=== PATIENT | female | born 1950 | race African-American/Black ===

== ENCOUNTER 2024-09-04 14:45 | Outpatient (CLI) | payer MEDICARE, SELFPAY ==
--- OUTSIDE RECORDS SUMMARY | 2024-09-04 14:56 | XMS_ITS ---
Author Organization Unknown TREATMENT PLAN Planned [facility] Start Date Provider Encounter for Check-up [id number] JADYN Augustin
[2024-09-04 17:12] LABS: Alanine Aminotransferase 31 U/L (12-78); Albumin Level 4.0 g/dl (3.5-5.0); Albumin/Globulin Ratio 1.3 (1.1-1.8); Alkaline Phosphatase 75 U/L (38-126); Anion Gap 18.0 mEq/L (5-15); Aspartate Amino Transferase 34 U/L (14-36); Bilirubin,Total 0.4 mg/dl (0.2-1.3); Blood Urea Nitrogen 7 mg/dl (7-17); Calcium 9.2 mg/dl (8.4-10.2); Carbon Dioxide 25 mmol/L (22.0-30.0); Chloride 102 mmol/L (98-107); Creatinine,Serum 0.80 mg/dl (0.52-1.04); Estimated Glomerular Filt Rate 70 ml/min (>60); GFR (African American) 85 ML/MIN (>60); Globulin 3.0 g/dL (1.3-3.2); Glucose 179 mg/dl (74-100); Potassium 4.0 mmoL/L (3.5-5.1); Sodium 141 mmol/L (136-145); Total Protein,Serum 7.0 g/dl (6.3-8.2)
== END 2024-09-04 23:59 | disposition home or self-care (01) ==
LOC: LAB 14:53
PROVIDERS: PCP Family Medicine; Visit Provider Family Medicine
DX: I10 Essential (primary) hypertension (principal); Z13.1 Encounter for screening for diabetes mellitus
CPT/HCPCS: 36415; 80053

== ENCOUNTER 2024-09-18 08:36 | Outpatient (CLI) | payer MEDICARE, SELFPAY ==
--- OUTSIDE RECORDS SUMMARY | 2024-09-18 08:39 | XMS_ITS | Data Portability ---
Author Organization [facility], [facility] Address [address] [address] Care Team Providers Care Property Management Coordinator Name Role Phone SATISH NAVARRO Primary Care Provider [phone] SATISH NAVARRO Referring Provider [phone] Assessment Encounter Date Assessment Date Assessment LastModified by Organization Details LastModified Time 09/25/2020 09/25/2020 HISTORY OF PRESENTING ILLNESS Ms. Bateman is a 69-year-old female with low back and leg pain, here for new patient evaluation She underwent a posterior fusion at L4/5 and 2019, now presents with left hip pain. Of note, the patient is prescribed dual antiplatelet therapy for recurrent strokes. Her pain begins in the low back and radiates into the left groin. Worse with walking. Prevents her from completing her ADLs. Denies any radicular symptoms at this time. Does occasionally have right groin pain as well but it is not bothering her today. Onset/Course: Began in 2019 Location: Low back and left groin Quality: Achy, dull, constant Worse: Walking Better: Sitting Associated symptoms: Denies Current Pain Medications: Gabapentin 200 mg 3 times daily Prior Pain Medications: Lyrica Hydrocodone briefly Non-interventiona l Tx: Has completed > 6 weeks of physical therapy and/or directed home exercise program Interventional Tx: L4/5 posterior fusion 2019 Imaging/Studies: CT lumbar spine 10/09/2019 Previous posterior interbody fusion at L4/5 T12/L1 minimal spurring no stenosis L1/2 mild bulge, no spinal or foraminal stenosis L2/3 mild protrusion, mild CCS, mild bilateral NFS, facet arthropathy L3/4 broad protrusion with mild endplate spurring, moderate facet arthropathy, mild CCS with mild to moderate bilateral NFS L4/5 fusion level, residual spurring, soft tissue material posterior to the disc, moderate bilateral NFS L5/S1 diffuse disc space narrowing, moderate facet arthropathy, osteophyte complex moderate left NFS, left lateral recess stenosis, moderate right neuroforaminal stenosis MRI L-spine 08/2019 T12/L1 WNL L1/2 no CCS, no NFS L2/3 facet arthropathy, mild CCS, mild bilateral NFS L3/4 facet arthropathy, mild CCS, mild bilateral NFS L4/5 fusion level, scar tissue, bilateral facet arthropathy, moderate right NFS and moderate left NFS, moderate CCS L5/S1 fusion level, moderate to severe left NFS, no CCS IMPRESSION/PLAN Ms. Bateman presents with left groin and low back pain, here for new patient evaluation Her pain today is primarily in the left groin, worse with provocative maneuvers for the left hip. We will proceed with a left hip intra-articular steroid injection for her. She also has axial low back pain that worsens with facet loading and has positive paraspinal tenderness. 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 Once we rule out hip pathology for her pain via her injection, she would be a candidate for lumbar MBB's at L L3-L5 bilaterally. Today, she has some hydrocodone left from an earlier prescription, takes it very rarely. We agreed to initiate therapeutic injections in hopes of addressing her pain, if this does not resolve her pain in the next few weeks, we will begin tramadol for her. I would start her at 50 mg twice daily. She understood this plan and is in agreement. We will also obtain x-rays of both hips today. ORT score is 0, making the patient a low risk candidate for opioid therapy should it be indicated. MICAH reviewed today and appropriate. Tyler reviewed via [facility] data retrieval tool and appropriate. The patient has failed conservative measures, including > 6 weeks of physical therapy, a monitored home exercise program, and/or NSAIDs. Not available 09/25/2020 11:50:25 10/30/2020 10/30/2020 Interval Hx: Ms. Bateman follows up after her left hip injection. She is deriving excellent pain relief from her left hip injection, denying any recurring groin pain on that side. She is able to walk easier and now getting around much better. She does have some residual back pain that she would like us to address today. This is bilateral and does not radiate. Doing very well overall and pleased with her care thus far. HISTORY OF PRESENTING ILLNESS Ms. Bateman is a 69-year-old female with low back and leg pain She underwent a posterior fusion at L4/5 and 2019, now presents with left hip pain. Of note, the patient is prescribed dual antiplatelet therapy for recurrent strokes. Her pain begins in the low back and radiates into the left groin. Worse with walking. Prevents her from completing her ADLs. Denies any radicular symptoms at this time. Does occasionally have right groin pain as well but it is not bothering her today. Onset/Course: Began in 2019 Location: Low back and left groin Quality: Achy, dull, constant Worse: Walking Better: Sitting Associated symptoms: Denies Current Pain Medications: Gabapentin 200 mg 3 times daily Prior Pain Medications: Lyrica Hydrocodone briefly Non-interventiona l Tx: Has completed > 6 weeks of physical therapy and/or directed home exercise program Interventional Tx: L4/5 posterior fusion 2019 Left hip injection 09/2020, excellent pain relief, ongoing Imaging/Studies: CT lumbar spine 10/09/2019 Previous posterior interbody fusion at L4/5 T12/L1 minimal spurring no stenosis L1/2 mild bulge, no spinal or foraminal stenosis L2/3 mild protrusion, mild CCS, mild bilateral NFS, facet arthropathy L3/4 broad protrusion with mild endplate spurring, moderate facet arthropathy, mild CCS with mild to moderate bilateral NFS L4/5 fusion level, residual spurring, soft tissue material posterior to the disc, moderate bilateral NFS L5/S1 diffuse disc space narrowing, moderate facet arthropathy, osteophyte complex moderate left NFS, left lateral recess stenosis, moderate right neuroforaminal stenosis MRI L-spine 08/2019 T12/L1 WNL L1/2 no CCS, no NFS L2/3 facet arthropathy, mild CCS, mild bilateral NFS L3/4 facet arthropathy, mild CCS, mild bilateral NFS L4/5 fusion level, scar tissue, bilateral facet arthropathy, moderate right NFS and moderate left NFS, moderate CCS L5/S1 fusion level, moderate to severe left NFS, no CCS IMPRESSION/PLAN Ms. Bateman presents with left groin and low back pain, here for new patient evaluation Her left hip injection relieved her groin pain and left-sided hip pain. 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 She is in agreement with this plan and wishes to move forward. ORT score is 0, making the patient a low risk candidate for opioid therapy should it be indicated. UDS reviewed today and appropriate. Tyler reviewed via [facility] data retrieval tool and appropriate. The patient has failed conservative measures, including > 6 weeks of physical therapy, a monitored home exercise program, and/or NSAIDs. Not available 10/30/2020 11:57:45 Plan of Treatment Reminders Order Date Submit Date Provider Last Modified By Organization Details Last Modified Time Details Appointments None recorded. Lab unlisted lab 2020 021 [email or web address] [facility], [facility], [address] [place] [address], [id number], 15:45:23 drug screen, urine 2020 021 [email or web address] [place], [address] [place], [place] [address] [address], [place], [address], 11:50:57 unlisted lab - confirm new patient 2020 021 [email or web address] [facility], [facility], [address] [place] [address], [id number], 15:14:45 Referral None recorded. Procedures medial branch block, lumbar (PROC) - #2 LMBB Bilateral L3-L5 Lulu Martín in 2 weeks 2020 021 [email or web address] Not available 13:52:46 intra-joon cular injection, hip (PROC) 2020 021 [email or web address] Not available 12:12:40 Surgeries medial branch block, lumbar (SURG) 2020 021 [email or web address] Not available 10:31:09 Imaging XR, hip, bilateral 2020 021 [email or web address] Not available 14:32:53 Medication Orders None recorded. Patient TargetsNo targets recorded. Patient InstructionsNo instructions recorded. Reason for Referral None Reported. Results Created Date Observation Date Name Description Value Unit Range Abnormal Flag Note LastModifiedBy Organization Detail LastModifiedTime 09/26/1909/25/2020 drug scree n, urine THC: negati ve Not Available [place] [address], [place], [address], 09/25/2020 11:06:37 09/26/19 21 09/25/2020 drug scree n, urine Buprenorphin e: negati ve Not Available [place] [address], [place], [address], 09/25/2020 11:06:37 09/26/19 21 09/25/2020 drug scree n, urine TCA: negati ve Not Available [place] [address], [place], [address], 09/25/2020 11:06:37 09/26/19 21 09/25/2020 drug scree n, urine Barbiturates : positi ve Not Available [place] [address], [place], [address], 09/25/2020 11:06:37 09/26/19 21 09/25/2020 drug scree n, urine Benzodiazepi cecil: negati ve Not Available [place] [address], [place], [address], 09/25/2020 11:06:37 09/26/19 21 09/25/2020 drug scree n, urine Methadone: negati ve Not Available [place] [address], [place], [address], 09/25/2020 11:06:37 09/26/19 21 09/25/2020 drug scree n, urine Amphetamines : negati ve Not Available [place] [address], [place], [address], 09/25/2020 11:06:37 09/26/19 21 09/25/2020 drug scree n, urine Morphine/Opi ates: negati ve Not Available [place] [address], [place], [address], 09/25/2020 11:06:37 09/26/19 21 09/25/2020 drug scree n, urine Oxycodone: negati ve Not Available [address], [place], [address], 09/25/2020 11:06:37 09/26/19 21 09/25/2020 drug scree n, urine MDMA: negati ve Not Available [address], [place], [address], 09/25/2020 11:06:37 09/26/19 21 09/25/2020 drug scree n, urine Cocaine: negati ve Not Available [address], [place], [address], 09/25/2020 11:06:37 09/26/19 21 09/25/2020 drug scree n, urine Methamphetam ine: negati ve Not Available [address], [place], [address], 09/25/2020 11:06:37 10/13/19 21 10/07/2020 XR, hip, bilat eral No observ ation record ed. Not Available 2020 14:32:53 Result Notes None recorded. Problems Name Problem SNOMED Code Status Onset Date Resolution Date Notes Provider Name and Address Organization Details Recorded Time Obesity 668701459 Active 2015 Irish Yu null, [place] - [facility] 1 11:30:02 Hypertensive disorder 25170792 Active 2015 Irish Yu null, [place] - [facility] 11:30:02 Seizure 38839616 Active 2015 Irish Yu null, [place] - [facility] 1 11:30:02 Type 2 diabetes mellitus without complication 525054934 Active 2015 Irish Yu null, [place] - [facility] 1 11:30:02 Presbyopia 34839567 Active 2015 Irishbrandon De SantiagoYu null, [place] - [facility] 11:30:02 Exotropia 169216650 Active 2015 Irish Yu null, [place] - [facility] 1 11:30:02 Hyperlipidemia 68904626 Active 2015 Irishbrandon Beverlyon null, [place] - [facility] 1 11:30:02 Cataract 388243715 Active 2016 Irish Yu null, [place] - [facility] 1 11:30:02 Burning sensation 03759916 Active 2019 Janettegeorgette Loveley null, [place] - [facility] 1 11:07:51 Low back pain 880892987 Active 2020 Irish Beverlyon null, [place] - [facility] 1 11:30:02 Lumbar spondylosis 971193453 Active 2020 Irish Beverlyon null, [place] - [facility] 11:30:02 Osteoarthritis of hip 230453627 Active 2020 Irish Beverlyon null, [place] - [facility] 11:30:02 Long-term drug therapy Active 2020 Irish De Santiagoguson null, [place] - [facility] 1 11:30:02 Problem Notes None recorded. Procedures Surgical History Date Name Laterality Status Provider Name and Address Organization Details Recorded Time 11/28/19 21 Diagnostic Lumbar MBB (2 Level Bilateral) completed DAVDI WAYNE MD [address] [place] [address], [address], [facility] 11/27/2020 15:24:33 10/01/19 21 Hip Joint Injection Fluoro completed DAVID WAYNE MD [address] [place] [address], [address], [facility] 09/30/2020 12:14:47 lumbar spinal fusion completed [facility] 09/25/2020 11:10:34 ACDF completed [facility] 09/25/2020 11:10:59 Hysterectomy completed [facility] 09/25/2020 11:11:28 Imaging Results None recorded. Procedure Notes None recorded. Medical Equipment None Reported. Allergies No known drug allergies Medications Name Sig Start Date Stop Date Status Note LastModified by Organization Details LastModified Time cyclobenzap rine 10 mg tablet Take 1 tablet 3 times a day by oral route as needed. 10/30 completed Not Available Not Available Not Available furosemide 40 mg tablet TAKE ONE TABLET BY MOUTH DAILY DIRECTED active Not Available Not Available No t Available furosemide 10 mg/mL injection solution Take 2 mL by injection route. 09/17 completed Not Available Not Available Not Available atorvastati n 40 mg tablet Take 1 tablet every day by oral route for 90 days. active Not Available Not Available No t Available Percocet 7.5 mg-325 mg tablet Take 1 tablet every 6 hours by oral route as needed. 07/25 completed Not Available Not Available Not Available azelastine 0.05 % eye drops 1 drop Two times a day 08/20 completed Not Available Not Available Not Available doxycycline hyclate 100 mg capsule Take 1 capsule twice a day by oral route for 30 days. 01/16 completed Not Available Not Available Not Available pravastatin 40 mg tablet TAKE ONE TABLET BY MOUTH EVERY NIGHT AT BEDTIME 02/25 completed Not Available Not Available Not Available hydrocodone 5 mg-acetamin ophen 325 mg tablet 10/30 completed Not Available Not Available Not Available Lipitor 80 mg tablet Take 1 tablet every day by oral route for 90 days. 2019 active Not Available Not Available Not Avai lable meloxicam 15 mg tablet Take 1 tablet every day by oral route as needed. 04/05 completed Not Available Not Available Not Available atenolol 25 mg tablet Take 1 tablet every day by oral route for 30 days. active Not Available Not Available No t Available phenytoin sodium extended 200 mg capsule TAKE TWO CAPSULES BY MOUTH DAILY active Not Available Not Available No t Available cyanocobala min (vit B-12) 1,000 mcg tablet 1 tab po q day 11/15 completed Not Available Not Available Not Available phenytoin sodium extended 100 mg capsule 1 tab poBedtime 05/15 completed Not Available Not Available Not Available clopidogrel 75 mg tablet Take 1 tablet every day by oral route for 90 days. active Not Available Not Available No t Available aspirin 81 mg tablet,jonathan yed release Daily 12/01 completed Not Available Not Available Not Available hydrocortis one 2.5 % topical cream with perineal applicator 09/25 completed Not Available Not Available Not Available triamcinolo ne acetonide 0.1 % dental paste apply 1/4 inch qhs 2019 active Not Available Not Available Not Avai lable aspirin 325 mg tablet,jonathan yed release 1 tab po q day 03/11 completed Not Available Not Available Not Available OneTouch Ultra Test strips Daily 03/11 completed Not Available Not Available Not Available metformin 1,000 mg tablet Take 1 tablet twice a day by oral route for 90 days. 07/04 completed Not Available Not Available Not Available prednisone 50 mg tablet active Not Available Not Available Not Available gabapentin 100 mg capsule Take 1 capsule 3 times a day by oral route as directed for 30 days. active Not Available Not Available No t Available methylpredn isolone 4 mg tablets in a dose pack Take as directed. 09/25 completed Not Available Not Available Not Available lisinopril 40 mg tablet TAKE ONE TABLET BY MOUTH DAILY active Not Available Not Available No t Available Klor-Con M20 mEq tablet,exte nded release TAKE ONE TABLET BY MOUTH TWICE A DAY active Not Available Not Available No t Available metoprolol tartrate 25 mg tablet TAKE ONE TABLET BY MOUTH TWICE A DAY 03/11 completed Not Available Not Available Not Available pregabalin 75 mg capsule 09/25 completed Not Available Not Available Not Available Januvia 50 mg tablet Take 1 tablet every day by oral route for 90 days. 11/15 completed Not Available Not Available Not Available Januvia 100 mg tablet Take 1 tablet every day by oral route for 90 days. 07/29 completed Not Available Not Available Not Available Janumet 50 mg-500 mg tablet Take 1 tablet twice a day by oral route for 30 days. active Not Available Not Available No t Available Janumet 50 mg-1,000 mg tablet TAKE ONE TABLET BY MOUTH TWICE A DAY active Not Available Not Available No t Available Aleve-D Sinus and Headache Two times a day 03/11 completed Not Available Not Available Not Available Suprep Bowel Prep Kit 17.5 gram-3.13 gram-1.6 gram oral solution DIRECTED 09/25 completed Not Available Not Available Not Available Polycin 500 unit-10,000 unit/gram eye ointment Apply 1 applicati on twice a day by ophthalmi c route. 01/16 completed Not Available Not Available Not Available Preparation H(phenyleph ,cocoa buttr) 0.25 %-88.44 % rectal suppository Insert 1 supposito ry 3 times a day by rectal route as needed for 7 days. 04/10 completed Not Available Not Available Not Available Vitals Date Recorded Body height Body mass index (BMI) Body weight Provider Name and Address Organization Details Last Updated DateTime 09/25/2020 160.02 cm 46.8 kg/m2 008989.39 g Janette Yanez [facility] 09/25/2020 11:06:56 Date Recorded Body height Body mass index (BMI) Body weight Pain severity - 0-10 verbal numeric rating [Score] - Reported Provider Name and Address Organization Details Last Updated DateTime 10/30/2020 160.02 cm 46.8 kg/m2 269697.39 g 4 Irish Yu [facility] 10/30/2020 11:29:50 Social History Question Answer Notes LastModified by Organizat ion Details LastModified Time Tobacco Smoking Status Former Smoker Janette melgar [facility] 09/25/2020 11:09:58 Are You Blind Or Do You Have Difficulty Seeing? No Information n ot available 09/25/2020 What Is Your Level Of Caffeine Consumption? Moderate [email or web address] Information not available 09/25/2020 In The 14 Days Before Symptom Onset, Have You Had Close Contact With A Laboratory-confirm ed COVID-19 While That Case Was Ill? No [email or web address] Information n ot available 09/25/2020 In The 14 Days Before Symptom Onset, Have You Had Close Contact With A Person Who Is Under Investigation For COVID-19 While That Person Was Ill? No [email or web address] Information not available 09/25/2020 Have You Been To An Area Known To Be High Risk For COVID-19? No [email or web address] Information not available 09/25/2020 Are You Deaf Or Do You Have Serious Difficulty Hearing? No [email or web address] Information not available 09/25/2020 What Type Of Diet Are You Following? REGULAR Information n ot available 09/25/2020 Have You Processed Blood Or Body Fluids From An Ebola Virus Disease Patient Without Appropriate PPE? No [email or web address] Information not available 09/25/2020 Do You Reside In Or Have You Traveled To An Area Where Ebola Virus Transmission Is Active? No Information not available 09/25/2020 Which Of Your Hands Is Dominant? Left [email or web address] Information n ot available 10/30/2020 What Is Your Relationship Status? [email or web address] Information not available 09/25/2020 Do You Have Difficulty Walking Or Climbing Stairs? Yes [email or web address] Information not available 09/25/2020 Sex: Unknown Functional Status Question Answer Note LastModified by Organizat ion Details LastModified Time Do you use any illicit or recreational drugs? No [email or web address] Information not available 09/25/2020 What is your level of alcohol consumption? Occasional [email or web address] Information not available 09/25/2020 Are you currently employed? No [email or web address] Information not available 09/25/2020 Are you able to walk? YESASSIST [email or web address] Information not available 09/25/2020 Do you have difficulty doing errands alone? Yes [email or web address] Information not available 09/25/2020 Do you have difficulty dressing or bathing? Yes Information not available 09/25/2020 What is your exercise level? Occasional [email or web address] Information not available 09/25/2020 Mental Status Question Answer Note LastModified by Organization D etails LastModified Time Do you have difficulty concentrating, remembering or making decisions? No [email or web address] Information no t available 09/25/2020 Family History Nothing Reported. Medical History Condition Response Bipolar Disease N Coronary Artery Disease N Seizure Disorder Y Gout N Atrial Fibrillation N Thyroid Disease N Hernia N Head Trauma/Injury N COPD N Depression N Anxiety Disorder N Acid Reflux (GERD) N Cancer N Stroke Y Skin Disorder N High Cholesterol Y Liver Disease N Rheumatoid Arthritis N Headaches N Fibromyalgia N Kidney Disease N Autoimmune Disease N Osteoarthritis N Neurosurgery N DVT N Peptic Ulcer Disease N Anemia N Heart Attack (DE) N Diabetes Y Cardiomyopathy N Bleeding Disorder N CHF N AIDS/HIV N Inflammatory Bowel Disease N Dementia N Asthma N Substance Abuse N Sleep Apnea N Hepatitis N Heart Disease N Pulmonary Embolism N Chronic Low Back Pain Y Hypertension Y Osteoporosis N Gynecological HistoryNo gynecological history recorded. Obstetrics History GPAL:G 0 P 0 0 0 0 Immunizations Vaccine Type Date Status Note Provider Nam e and Address Organization Details Recorded Time pneumococcal, unspecified formulation 12/08/2011 [facility] 09/25/2020 11:07:51 Past Encounters Encounter ID Performer Location Encounter Start Date Encounter Closed Date Diagnosis/Indication Diagnosis SNOMED-CT Code Diagnosis ICD10 Code Diagnosis Note [id number] DAVID WAYNE MD [place] [address] [address] [place] [address] 09/25/2020 10:14:28 09/25/2020 11:43:35 Lumbar spondylosis 140144846 M47.896 Long-term drug therapy 065026962 Z79.899 The urine sample is being sent for quantitati ve LCMS analysis of illicit drugs (Cocaine, Methamphet amine, Heroin, Fentanyl, THC, Synthetic Cannabinoi ds, Kratom, MDMA, PCP, and Synthetic Stimulants , Opiates (Codeine, Hydrocodon e, Hydromorph one, and Morphine), Oxycodone, Oxymorphon e, Methadone, Synthetic Opioids (Tramadol, Tapentadol , and Buprenorph ine), Benzodiaze pines (Alprazola m, Clonazepam , Lorazepam, Diazepam, Nordazepam , Oxazepam, and Temazepam) , Gabapentin , Pregabalin , Muscle Relaxants (Carisopro dol, Cyclobenza jennifer, and Meprobamat e), Ketamine, Nalaxone, and Amphetamin e, as this patient is being prescribed opioid medication s for the first time at this practice. The purpose of this analysis is to confirm the patients stated medication usage and to establish baseline medication and metabolite quantities , and to evaluate for use of medication s that are not prescribed or reported by the patient. Osteoarthritis of hip 23 [id number] M16.0 [id number] DAVID WAYNE MD [place] [address] [phone] 09/30/2020 08:23:55 09/30/2020 09:24:04 Osteoarthritis of hip [id number] M16.0 [id number] DAVID WAYNE MD [place] [address] [address] 10/30/2020 10:39:57 10/30/2020 11:59:55 Osteoarthritis of hip [id number] M16.0 Lumbar spondylosis [id number] M47.896 Long-term drug therapy [id number] Z79.899 The urine sample is being sent for quantitati ve LCMS analysis of illicit drugs (Cocaine, Methamphet amine, Heroin, Fentanyl, THC, Synthetic Cannabinoi ds, Kratom, MDMA, PCP, and Synthetic Stimulants , Opiates (Codeine, Hydrocodon e, Hydromorph one, and Morphine), Oxycodone, Oxymorphon e, Methadone, Synthetic Opioids (Tramadol, Tapentadol , and Buprenorph ine), Benzodiaze pines (Alprazola m, Clonazepam , Lorazepam, Diazepam, Nordazepam , Oxazepam, and Temazepam) , Gabapentin , Pregabalin , Muscle Relaxants (Carisopro dol, Cyclobenza jennifer, and Meprobamat e), Ketamine, Nalaxone, and Amphetamin e, as this patient is being prescribed opioid medication s for the first time at this practice. The purpose of this analysis is to confirm the patients stated medication usage and to establish baseline medication and metabolite quantities , and to evaluate for use of medication s that are not prescribed or reported by the patient. [id number] DAVID WAYNE MD [place] [address] [place] [address] 11/27/2020 12:59:07 11/27/2020 13:38:17 Lumbar spondylosis [id number] M47.896 Health Concerns Section Related Observation LastModified by Organization Detai ls LastModified Time None Recorded Concern Status LastModified by Organization Details LastModified Time None Recorded Advance Directives Directive None Recorded Payers Insurance Date Sequence Insurance Name Policy Number Policy Edmond Covered Member ID Edmond Member ID Guarantor Name 12/01/2020 1 [place] Gemma Bateman [id number] Gemma Bateman Notes Date Note Type Note Provider Name and Address Organization Details Recorded Time 09/25/2020 text/html Low back painRep orted by PatientHPIFor associated symptoms, patient reportsnumbness (bilateral feet),tingling (bilateral feet), andswelling (bilateral lower extremities)but reportsno weakness,no popping/clicking,no bowel incontinence,no urinary retention,no urinary incontinence, andno perineal paresthesia/anesthesia . 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 For location, patient reportsbuttock: __ (right greater than left.)(pain radiates into the groin area bilaterally.). For duration, patient reportsvaries throughout the day. For context, patient reportsstarted without cause. For quality, patient reportsachingandthrobb ing. For pain intensity, patient reportsmoderate,jes t pain level: 5/10,average pain level: 5/10, andworst pain level: 10/10. For alleviating factors, patient reportsrestandopioids (hydrocodone). For aggravating factors, patient reportsstandingandwalk ing(patient states as she stands or walks she starts to lean forward.). For prior imaging, patient reportsmri (10/09/2019 mri lsp2/ mri lsp). For lumbar surgery, patient reportslumbar spinal fusion: (05/14/2019 fusion l4/[address] allison). For physical therapy, patient reportsresponse to therapy: temporary pain/symptoms improvement(04/2019 patient states this was beneficial.). For medications history, patient reportsnsaids:,muscle relaxants: (flexeril-not effective),neuropathic s: (gabapentin- not effective for low back pain.lyrica-side effects), andopioid pain medications: (hydrocodone-effective ). For prior pain management, patient reportsyes: (the pain treatment center. patient states this was possibly 20 years ago.). For onset, (pain increased since 2014). For interventional treatment history, (to date patient has not received injective therapy.). DAVID WAYNE MD [address] [place] [address], [phone], [facility] 09/25/2020 11:51:03 10/30/2020 text/html Follow-up (meds & injections)Reported by Patient Low back painReported by PatientHPIFor associated symptoms, patient reportsnumbness (bilateral feet),tingling (bilateral feet), andswelling (bilateral lower extremities)but reportsno weakness,no popping/clicking,no bowel incontinence,no urinary retention,no urinary incontinence, andno perineal paresthesia/anesthesia . 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 For location, patient reportsbuttock: __ (right greater than left.)(pain radiates into the groin area bilaterally.). For duration, patient reportsvaries throughout the day. For context, patient reportsstarted without cause. For quality, patient reportsachingandthrobb ing. For pain intensity, patient reportsmoderate,curren t pain level: 4/10,average pain level: 5/10, andworst pain level: 10/10. For alleviating factors, patient reportsrest. For aggravating factors, patient reportsstandingandwalk ing(patient states as she stands or walks she starts to lean forward.). For prior imaging, patient reportsmri (10/09/2019 mri lsp2/ mri lsp). For lumbar surgery, patient reportslumbar spinal fusion: (05/14/2019 fusion l4/[address] allison). For physical therapy, patient reportsresponse to therapy: temporary pain/symptoms improvement(04/2019 patient states this was beneficial.). For medications history, patient reportsneuropathics: (gabapentin- not effective for low back pain.lyrica-side effects). For prior pain management, patient reportsyes: (the pain treatment center. patient states this was possibly 20 years ago.). For onset, (pain increased since 2015). For interventional treatment history, (to date patient has not received injection therapy.). Patient denies any ER, specialty, or PCP visits recently. No updated imaging. Patient states that she is no longer taking Hydrocodone or Cyclobenzaprine. Patient has some L left pain but is mainly concerned about her low back. Current pain score is 4/10. DAVID WAYNE MD [address] [place] [address], [phone], [facility] 10/30/2020 11:58:54 OBGyn Episode No OBEpisode recorded.
--- OUTSIDE RECORDS SUMMARY | 2024-09-18 08:39 | XMS_ITS | Data Portability ---
Author Organization [facility] KIYA Jo ATLANTA CLOSED Address [address] [place] [address] Care Team Providers Care Relocation Coordinator Name Role Phone DEUCE MACHADO Traffic Chief MAR OSORIO Neurologist [phone] KATHARINE MURRAY Primary Care Provider Assessment No assessment recorded. Plan of Treatment Reminders Order Date Submit Date Provider Last Modified By Organization Details Last Modified Time Details Appointments None recorded. Lab lipid panel, serum 2024 025 [facility], [address] [place] [address], [id number], 5 20:50:18 CMP, serum or plasma 2024 025 [facility], [address] [place] [address], [address], 5 20:50:17 CBC w/ auto diff 2024 025 [facility], [address] [place] [address], [address], 5 20:16:28 hemoglobin A1C, fingerstick 2024 025 [email or web address] [facility], [address] [place] [address], [address], 5 16:42:43 drug screen, urine 2023 024 [facility], [address] [place] [address], [address], 4 15:37:53 BMP, serum or plasma 2023 024 [facility], [address] [place] [address], [address], 4 20:05:27 phenytoin, total, serum 2023 024 [facility], [address] [place] [address], [address], 4 19:59:18 hemoglobin A1C, fingerstick 2023 024 [email or web address] [facility], [address] [place] [address], [address], 4 14:34:22 microalbumi n/creatinin e, mass ratio, urine 2023 024 [facility], [address] [place] [address], [address], 4 20:13:26 hemoglobin A1C, fingerstick 2023 024 [facility], [address] [place] [address], [address], 4 15:39:34 hemoglobin A1C, fingerstick 2022 023 [facility], [address] [place] [address], [address], 3 16:29:14 glucose, fingerstick , blood 2022 023 [facility], [address] [place] [address] [place], [address], 3 16:29:15 lipid panel, serum 2022 023 [facility], [address] [place] [address], [address], 4 17:36:32 iron + total iron-bindin g capacity (TIBC), serum 2022 023 [facility], [address] [place] [address], [address], 4 17:36:29 ferritin, serum or plasma 2022 023 [facility], [address] [place] [address], [address], 4 17:36:27 CBC w/ auto diff 2022 023 [facility], [address] [place] [address], [address], 4 15:07:09 BMP, serum or plasma 2022 023 [facility], [address] [place] [address], [address], 4 17:36:30 drug screen, urine 2022 023 [facility], [address] [place], [address], 3 22:16:16 microalbumi n/creatinin e, mass ratio, urine 2022 023 [facility], [address] [place] [address], [address], 3 22:16:16 hemoglobin A1C, fingerstick 2022 023 [facility], [address] [place], [address], 3 12:32:24 Referral office spec referral 2024 025 [facility], [address] , [place], [address], 5 09:47:09 office spec referral 2023 024 [email or web address] Lit Martinez DPM, [address] , [address], [place], [address], 4 09:35:37 physical therapist referral 2022 023 [facility], [address] [facility], [place], [address], 3 01:24:41 Procedures None recorded. Surgeries None recorded. Imaging XR, cervical spine, 4 or 5 view 2022 023 [email or web address] 4 [facility], [address] [place] [address], [address], 3 16:42:58 XR, chest, 2 view 2022 023 [email or web address] 4 [facility], [address] [place] [address], [address], 3 16:42:58 Medication Orders clopidogrel 75 mg tablet 2024 025 [facility] [id number], [address] [place], [address], 5 16:42:51 Phenytek 200 mg capsule 2024 025 [facility] [id number], [address] [place], [address], 5 16:42:54 lisinopril 40 mg tablet 2024 025 [facility] [id number], [address] [place] [address], [address], 5 16:42:48 gabapentin 300 mg capsule 2024 025 [facility] [id number], [address] [place] [address], [address], 5 16:43:02 Janumet 50 mg-500 mg tablet 2024 025 [facility] [id number], [address] [place] [address], [address], 5 16:42:59 atorvastati n 40 mg tablet 2023 024 [facility] [id number], [address] [place] [address], [address], 4 14:43:26 furosemide 40 mg tablet 2023 024 [facility] [id number], [address] [place] [address], [address], 4 14:43:29 clopidogrel 75 mg tablet 2023 024 [facility] [id number], [address] [place] [address], [address], 4 14:43:23 Phenytek 200 mg capsule 2023 024 [facility] [id number], [address] [place] [address], [address], 4 14:43:25 gabapentin 300 mg capsule 2023 024 [facility] [id number], [address] [place] [address], [address], 4 14:54:26 atenolol 25 mg tablet 2023 024 [facility] [id number], [address] [place], [address], 4 14:43:20 Klor-Con M20 mEq tablet,exte nded release 2023 024 [facility] [id number], [address] [place] [address], [address], 4 14:43:23 lisinopril 40 mg tablet 2023 [facility] [id number], [address] [place] [address], [address], 4 14:43:22 Ozempic 0.25 mg or 0.5 mg (2 mg/3 mL) subcutaneou s pen injector 2023 [facility] [id number], [address] [place] [address], [address], 4 15:39:17 Jardiance 25 mg tablet 2023 [facility] [id number], [address] [place] [address], [address], 4 15:39:05 metformin 500 mg tablet 2023 024 [facility] [id number], [address] [place] [address], [address], 4 15:39:12 clopidogrel 75 mg tablet 2023 024 [facility] [id number], [address] [place] [address], [address], 4 11:00:40 Janumet 50 mg-500 mg tablet 2023 024 [facility] [id number], [address] [place] [address], [address], 4 14:27:22 atorvastati n 40 mg tablet 2023 024 [facility] [id number], [address] [place] [address], [address], 4 11:00:57 phenytoin sodium extended 200 mg capsule 2023 024 [facility] [id number], [address] [place] [address], [address], 4 11:00:52 furosemide 40 mg tablet 2023 024 [facility] [id number], [address] [place] [address], [address], 4 11:00:46 atenolol 25 mg tablet 2023 024 [facility] [id number], [address] [place] [address], [address], 4 11:01:00 Klor-Con M20 mEq tablet,exte nded release 2023 024 [facility] [id number], [address] [place] [address], [address], 4 11:00:58 lisinopril 40 mg tablet 2023 024 [facility] [id number], [address] [place] [address], [address], 4 11:00:43 clopidogrel 75 mg tablet 2022 023 [facility] [id number], [address] [place] [address], [address], 3 16:29:14 gabapentin 300 mg capsule 2022 023 [facility] [id number], [address] [place] [address], [address], 3 16:29:14 Janumet 50 mg-500 mg tablet 2022 023 [email or web address] [facility] [id number], [address] [place] [address], [address], 4 14:27:17 atorvastati n 40 mg tablet 2022 023 [facility] [id number], [address] [place] [address], [address], 3 16:29:15 furosemide 40 mg tablet 2022 023 [facility] [id number], [address] [place] [address], [address], 3 16:29:14 phenytoin sodium extended 200 mg capsule 2022 023 [email or web address] 4 [facility] [id number], [address] [place] [address], [address], 3 09:54:28 atenolol 25 mg tablet 2022 023 [facility] [id number], [address] [place] [address], [address], 3 16:29:14 lisinopril 40 mg tablet 2022 023 [facility] [id number], [address] [place] [address], [address], 3 16:29:14 Klor-Con M20 mEq tablet,exte nded release 2022 023 [email or web address] [facility] [id number], [address] [place] [address], [address], 3 16:29:14 Medrol (Raymon) 4 mg tablets in a dose pack 2022 023 [email or web address] [facility] [id number], [address] [place] [address], [address], 3 15:42:38 cyclobenzap rine 10 mg tablet 2022 024 [facility] [id number], [address] [place] [address], [address], 4 10:50:48 clopidogrel 75 mg tablet 2022 023 [facility] [id number], [address] [place] [address], [address], 3 11:03:01 atenolol 25 mg tablet 2022 023 [facility] [id number], [address] [place] [address], [address], 3 11:02:52 Janumet 50 mg-500 mg tablet 2022 023 [email or web address] 9 [facility] [id number], [address] [place] [address], [address], 4 14:27:17 gabapentin 300 mg capsule 2022 023 [facility] [id number], [address] [place] [address], [address], 3 12:02:33 Lipitor 40 mg tablet 2022 023 [facility] [id number], [address] [place], [address], 11:03:04 furosemide 40 mg tablet 2022 023 [facility] [id number], [address] [place], [address], 11:02:59 phenytoin sodium extended 200 mg capsule 2022 023 [facility] [id number], [address] [place], [address], 11:02:53 Patient TargetsNo targets recorded. Patient Instructions Encounter Date Encounter Id Patient Instructions Last Modified By Organization Details Last Modified Time 06/07/2022 [id number] RTC 3 months oomosebi Not available 11:03:58 12/01/2022 [id number] Body Mass Index: Care Instructions-LC [email or web address] Not available 12/21/2022 20:33:43 RTC 3 months. oomosebi Not available 20:32:08 04/07/2023 [id number] RTC 6 months oomosebi Not available 10:58:03 10/11/2023 [id number] controlled substance agreement* [email or web address] Not available 10/11/2023 15:40:30 Body Mass Index: Care Instructions-LC [email or web address] Not available 10/11/2023 14:34:19 Reason for Referral Physical Therapist Referral for Lumbar radiculopathy Referring Physician: [facility], Encounter Date: 06/07/2022 [employer] Referral for Foot callus Referring Physician: [facility], Encounter Date: 10/11/2023 [employer]er Referral for Foot callus Referring Physician: [facility], Encounter Date: 05/20/2024 Results Created Date Observation Date Name Description Value Unit Range Abnormal Flag Note LastModifiedBy Organization Detail LastModifiedTime 06/08/19 23 06/07/2022 MICRO ALBUM IN/CR EAT RATIO microalbumin , random <12 mg/L 0-19 normal Not Available [facility] [address] [place], [address], 06/07/2022 16:02:52 06/08/19 23 06/07/2022 MICRO ALBUM IN/CR EAT RATIO creatinine,u r,random 42 mg/dL normal NO AUTUMN L RANGE ESTAB LISHE D FOR RANDO M URINE . Not Available [facility] [address] [place], [address], 06/07/2022 16:02:52 06/08/19 23 06/07/2022 MICRO ALBUM IN/CR EAT RATIO MA/creatinin e ratio see below mcg/m g 0-29 normal Unabl e to calcu late micro album in/cr eatin ine ratio . Not Available [facility] [address] [place], [address], 06/07/2022 16:02:52 06/08/19 23 06/07/2022 hemog lobin A1C, finge rstic k hemoglobin A1C % 6.1 % 4.0 - 5.6 Not Available [address], [address], 06/07/2022 12:02:35 06/08/19 23 06/07/2022 drug scree n, urine Barbiturates ([id number]) POSITI VE Not Available [address], [address], 06/07/2022 11:39:56 06/08/19 23 06/07/2022 drug scree n, urine Marijuana (THC50) Negati ve Not Available [address], [address], 06/07/2022 11:39:56 06/08/19 23 06/07/2022 drug scree n, urine Cocaine ([id number]) Negati ve Not Available [address], [address], 06/07/2022 11:39:56 06/08/19 23 06/07/2022 drug scree n, urine Opiates (VUL065) POSITI VE Not Available [address], [address], 06/07/2022 11:39:56 06/08/19 23 06/07/2022 drug scree n, urine Amphetamine ([id number]) Negati ve Not Available [address], [address], 06/07/2022 11:39:56 06/08/19 23 06/07/2022 drug scree n, urine Methamphetam ine ([id number]) Negati ve Not Available [address], [address], 06/07/2022 11:39:56 06/08/19 23 06/07/2022 drug scree n, urine Benzodiazepi cecil (QDV148) Negati ve Not Available [address], [address], 06/07/2022 11:39:56 06/08/19 23 06/07/2022 drug scree n, urine MDMA (IFTL414) Negati ve Not Available [address], [address], 06/07/2022 11:39:56 06/08/19 23 06/07/2022 drug scree n, urine Methadone ([id number]) Negati ve Not Available [address], [address], 06/07/2022 11:39:56 06/08/19 23 06/07/2022 drug scree n, urine Oxycodone (RRV599) Negati ve Not Available [address], [address], 06/07/2022 11:39:56 06/08/19 23 06/07/2022 drug scree n, urine Phencyclidin e (PCP25) Negati ve Not Available [address], [address], 06/07/2022 11:39:56 06/08/19 23 06/07/2022 drug scree n, urine Tricyclic Antidepressa nts (TCA 1000) Negati ve Not Available [address], [address], 06/07/2022 11:39:56 12/02/19 23 12/01/2022 hemog lobin A1C, finge rstic k hemoglobin A1C % 5.9 % 4.0 - 5.6 Not Available [address], [address], 12/01/2022 15:26:24 12/02/19 23 12/01/2022 gluco se, finge rstic k, blood glucose, fingerstick 154 mg/dL 70 - 100 Not Available [address], [address], 12/01/2022 15:53:09 03/31/19 24 03/31/2023 COMPL ETE BLOOD COUNT white blood cells 5.3 10*3/ uL 3.8-10 .8 normal Not Available [facility] [address] [place] [address], [address], 03/31/2023 15:07:09 03/31/19 24 03/31/2023 COMPL ETE BLOOD COUNT red blood cells 4.64 10*6/ uL 3.80-5 .20 normal Not Available [facility] [address] [place] [address], [address], 03/31/2023 15:07:09 03/31/19 24 03/31/2023 COMPL ETE BLOOD COUNT hemoglobin 13.3 g/dL 12.0-1 6.0 normal Not Available [facility] [address] [place] [address], [address], 03/31/2023 15:07:09 03/31/19 24 03/31/2023 COMPL ETE BLOOD COUNT hematocrit 40.5 % 35.0-4 7.0 normal Not Available [facility] [address] [place] [address], [address], 03/31/2023 15:07:09 03/31/19 24 03/31/2023 COMPL ETE BLOOD COUNT MCV 87 fL 80-100 normal Not Available [facility] [address] [place] [address], [address], 03/31/2023 15:07:09 03/31/19 24 03/31/2023 COMPL ETE BLOOD COUNT MCH 29 pg 26-35 normal Not Available [facility] [address] [place] [address], [address], 03/31/2023 15:07:09 03/31/19 24 03/31/2023 COMPL ETE BLOOD COUNT MCHC 33 g/dL 32-36 normal Not Available [facility] [address] [place] [address], [address], 03/31/2023 15:07:09 03/31/19 24 03/31/2023 COMPL ETE BLOOD COUNT RDW 13.8 % 11.0-1 5.0 normal Not Available [facility] [address] [place] [address], [address], 03/31/2023 15:07:09 03/31/19 24 03/31/2023 COMPL ETE BLOOD COUNT MPV 8.4 fL 6.2-10 .5 normal Not Available [facility] [address] [place] [address], [address], 03/31/2023 15:07:09 03/31/19 24 03/31/2023 COMPL ETE BLOOD COUNT platelet count 398 10*3/ uL 150-40 0 normal Not Available [facility] [address] [place] [address], [address], 03/31/2023 15:07:09 03/31/19 24 03/31/2023 COMPL ETE BLOOD COUNT neutrophil,a bsolute 2.1 10*3/ uL 1.6-8. 4 normal Not Available [facility] [address] [place] [address], [address], 03/31/2023 15:07:09 03/31/19 24 03/31/2023 COMPL ETE BLOOD COUNT lymphocyte,a bsolute 2.4 10*3/ uL 0.4-5. 1 normal Not Available [facility] [address] [place] [address], [address], 03/31/2023 15:07:09 03/31/19 24 03/31/2023 COMPL ETE BLOOD COUNT monocyte,abs olute 0.7 10*3/ uL 0.0-1. 2 normal Not Available [facility] [address] [place] [address], [address], 03/31/2023 15:07:09 03/31/19 24 03/31/2023 COMPL ETE BLOOD COUNT eosinophil,a bsolute 0.1 10*3/ uL 0.0-0. 8 normal Not Available [facility] [address] [place] [address], [address], 03/31/2023 15:07:09 03/31/19 24 03/31/2023 COMPL ETE BLOOD COUNT basophil,abs olute 0.0 10*3/ uL 0.0-0. 3 normal Not Available [facility] [address] [place] [address], [address], 03/31/2023 15:07:09 03/31/19 24 03/31/2023 COMPL ETE BLOOD COUNT % neutrophils 40.1 % 42.0-7 8.0 low Not Available [facility] [address] [place] [address], [address], 03/31/2023 15:07:09 03/31/19 24 03/31/2023 COMPL ETE BLOOD COUNT % lymphocytes 45.1 % 11.0-4 7.0 normal Not Available [facility] [address] [place] [address], [address], 03/31/2023 15:07:09 03/31/19 24 03/31/2023 COMPL ETE BLOOD COUNT % monocytes 12.4 % 0.0-11 .0 high Not Available [facility] [address] [place] [address], [address], 03/31/2023 15:07:09 03/31/19 24 03/31/2023 COMPL ETE BLOOD COUNT % eosinophils 2.1 % 0.0-7. 0 normal Not Available [facility] [address] [place] [address], [address], 03/31/2023 15:07:09 03/31/19 24 03/31/2023 COMPL ETE BLOOD COUNT % basophils 0.3 % 0.0-3. 0 normal Not Available [facility] [address] [place] [address], [address], 03/31/2023 15:07:09 03/31/19 24 03/31/2023 COMPL ETE BLOOD COUNT nucleated red cells 0.1 % 0.0-0. 9 normal Not Available [facility] [address] [place] [address], [address], 03/31/2023 15:07:09 03/31/19 24 03/31/2023 COMPL ETE BLOOD COUNT nucleated RBCs, absolute 0.01 10*3/ uL not estab. normal Not Available [facility] [address] [place] [address], [address], 03/31/2023 15:07:09 03/31/19 24 03/31/2023 SUE TIN ferritin 63 NG/mL 13-157 normal Not Available [facility] [address] [place] [address], [address], 03/31/2023 17:36:27 03/31/19 24 03/31/2023 IRON PANEL -TOTA L AND TIBC iron 97 ug/dL 37-145 normal Not Available [facility] [address] [place] [address], [address], 03/31/2023 17:36:29 03/31/19 24 03/31/2023 IRON PANEL -TOTA L AND TIBC total iron binding cap. 262 ug/dL _(paul c) 250-45 0 normal Not Available [facility] [address] [place] [address], [address], 03/31/2023 17:36:29 03/31/19 24 03/31/2023 IRON PANEL -TOTA L AND TIBC unsat.iron binding cap. 165 ug/dL 112-34 7 normal Not Available [facility] [address] [place] [address], [address], 03/31/2023 17:36:29 03/31/19 24 03/31/2023 IRON PANEL -TOTA L AND TIBC % saturation 37 %_(ca lc) 15-50 normal Not Available [facility] [address] [place] [address], [address], 03/31/2023 17:36:29 03/31/19 24 03/31/2023 BASIC METAB OLIC PANEL glucose 108 mg/dL 74-100 high Not Available [facility] [address] [place] [address], [address], 03/31/2023 17:36:30 03/31/19 24 03/31/2023 BASIC METAB OLIC PANEL blood urea nitrogen 9 mg/dL 6-20 normal Not Available [facility] [address] [place] [address], [address], 03/31/2023 17:36:30 03/31/19 24 03/31/2023 BASIC METAB OLIC PANEL creatinine 0.74 mg/dL 0.50-0 .95 normal Not Available [facility] [address] [place] [address], [address], 03/31/2023 17:36:30 03/31/19 24 03/31/2023 BASIC METAB OLIC PANEL BUN/creatini ne ratio 12 (calc ) 10-20 normal Not Available [facility] [address] [place] [address], [address], 03/31/2023 17:36:30 03/31/19 24 03/31/2023 BASIC METAB OLIC PANEL sodium 141 mmol/ L 136-14 5 normal Not Available [facility] [address] [place] [address], [address], 03/31/2023 17:36:30 03/31/19 24 03/31/2023 BASIC METAB OLIC PANEL potassium 4.1 mmol/ L 3.4-5. 0 normal Not Available [facility] [address] [place] [address], [address], 03/31/2023 17:36:30 03/31/19 24 03/31/2023 BASIC METAB OLIC PANEL chloride 104 mmol/ L 98-107 normal Not Available [facility] [address] [place] [address], [address], 03/31/2023 17:36:30 03/31/19 24 03/31/2023 BASIC METAB OLIC PANEL carbon dioxide 24 mmol/ L 22-31 normal Not Available [facility] [address] [place] [address], [place], [address], 03/31/2023 17:36:30 03/31/19 24 03/31/2023 BASIC METAB OLIC PANEL anion gap 13 (calc ) 7-25 normal Not Available [facility] [address] [place], [address], 03/31/2023 17:36:30 03/31/19 24 03/31/2023 BASIC METAB OLIC PANEL calcium 8.6 mg/dL 8.6-10 .2 normal Not Available [facility] [address] [place], [address], 03/31/2023 17:36:30 03/31/19 24 03/31/2023 BASIC METAB OLIC PANEL GFR 85 >= 60 normal NOT E New calcu latio n for GFR (CKD- EPI 2020) is formu lated witho ut race adjus tment facto rs at the recom menda tion of the Ernesto Roberts y Evens atcorina and Rosemary Gabriele ty of Nephr ology . This calcu latio n has not been valid ated in pregn ant women . For yvette aguilar nts refer to https ://paradise ling.margareth rg/zahida aguilar s/GABRIELAO QI/gf r_cal culat orPed Not Available [facility] [address] [place], [address], 03/31/2023 17:36:30 03/31/19 24 03/31/2023 LIPID PROFI LE HDL cholesterol 59 mg/dL 50-242 normal Not Available [facility] [address] [place], [address], 03/31/2023 17:36:32 03/31/19 24 03/31/2023 LIPID PROFI LE triglyceride s 82 mg/dL 0-149 normal TRIGL YCERI DE RANGE S AUTUMN L: < 150 BORDE RLINE HIGH: 150 - 199 HIGH: 200 - 499 VERY HIGH: > OR = 500 Not Available [facility] [address] [place], [address], 03/31/2023 17:36:32 03/31/19 24 03/31/2023 LIPID PROFI LE cholesterol 136 mg/dL 0-199 normal YESICA STERO L (TOTA L) RANGE S STAN ABLE: < 200 BORDE RLINE : 200 - 239 HIGHE R RISK: > 239 Not Available [facility] [address] [place], [address], 03/31/2023 17:36:32 03/31/19 24 03/31/2023 LIPID PROFI LE LDL cholesterol 61 mg/dL _(paul c) 0-99 normal LDL YESICA STERO L RANGE S OPTIM AL: < 100 NEAR/ ABOVE OPTIM AL: 100 - 129 BORDE RLINE HIGH: 130 - 159 HIGH: 160 - 189 VERY HIGH: > OR = 190 Not Available [facility] [address] [place] [address], [address], 03/31/2023 17:36:32 04/07/19 24 04/07/2023 hemog lobin A1C, finge rstic k hemoglobin A1C % 6.6 % 4.0 - 5.6 Not Available [address], [address], 04/07/2023 15:11:25 10/11/19 24 10/11/2023 PHENY TOIN phenytoin 11.7 ug/mL 10.0-2 0.0 normal Not Available [facility] [address] [place], [address], 10/11/2023 19:59:18 10/11/19 24 10/11/2023 BASIC METAB OLIC PANEL glucose 140 mg/dL 74-100 high Not Available [facility] [address] [place], [address], 10/11/2023 20:05:27 10/11/19 24 10/11/2023 BASIC METAB OLIC PANEL blood urea nitrogen 10 mg/dL 6-20 normal Not Available [facility] [address] [place] [address], [address], 10/11/2023 20:05:27 10/11/19 24 10/11/2023 BASIC METAB OLIC PANEL creatinine 0.91 mg/dL 0.50-0 .95 normal Not Available [facility] [address] [place] [address], [address], 10/11/2023 20:05:27 10/11/19 24 10/11/2023 BASIC METAB OLIC PANEL BUN/creatini ne ratio 11 (calc ) 10-20 normal Not Available [facility] [address] [place] [address], [address], 10/11/2023 20:05:27 10/11/19 24 10/11/2023 BASIC METAB OLIC PANEL sodium 143 mmol/ L 136-14 5 normal Not Available [facility] [address] [place] [address], [address], 10/11/2023 20:05:27 10/11/19 24 10/11/2023 BASIC METAB OLIC PANEL potassium 3.8 mmol/ L 3.4-5. 0 normal Not Available [facility] [address] [place] [address], [address], 10/11/2023 20:05:27 10/11/19 24 10/11/2023 BASIC METAB OLIC PANEL chloride 102 mmol/ L 98-107 normal Not Available [facility] [address] [place] [address], [address], 10/11/2023 20:05:27 10/11/19 24 10/11/2023 BASIC METAB OLIC PANEL carbon dioxide 29 mmol/ L 22-31 normal Not Available [facility] [address] [place] [address], [address], 10/11/2023 20:05:27 10/11/19 24 10/11/2023 BASIC METAB OLIC PANEL anion gap 12 (calc ) 7-25 normal Not Available [facility] [address] [place], [address], 10/11/2023 20:05:27 10/11/19 24 10/11/2023 BASIC METAB OLIC PANEL calcium 10.0 mg/dL 8.6-10 .2 normal Not Available [facility] [address] [place], [address], 10/11/2023 20:05:27 10/11/19 24 10/11/2023 BASIC METAB OLIC PANEL GFR 66 >= 60 normal NOT E New calcu latio n for GFR (CKD- EPI 2020) is formu lated witho tommy race adjus tment facto rs at the recom menda tion of the [employer] ation and Ameri can [place] ty of Nephr ology . This calcu latio n has not been valid ated in pregn ant women . For pedia tric patie nts refer to https ://paradise w.kristin ling.o rg/pr ofess ional s/KDO QI/gf r_cal culat orPed Not Available [facility] [address] [place] [address], [address], 10/11/2023 20:05:27 10/11/19 24 10/11/2023 MICRO ALBUM IN/CR EAT RATIO microalbumin , random <12 mg/L 0-19 normal Not Available [facility] [address] [place] [address], [address], 10/11/2023 20:13:26 10/11/19 24 10/11/2023 MICRO ALBUM IN/CR EAT RATIO creatinine,u r,random 21 mg/dL normal NO AUTUMN L RANGE ESTAB LISHE D FOR RANDO M URINE . Not Available [facility] [address] [place] [address], [address], 10/11/2023 20:13:26 10/11/19 24 10/11/2023 MICRO ALBUM IN/CR EAT RATIO MA/creatinin e ratio see below mcg/m g_cre at 0-29 normal Unabl e to calcu late micro album in/cr eatin ine ratio . Not Available [facility] [address] [place], [address], 10/11/2023 20:13:26 10/11/19 24 10/11/2023 drug scree n, urine Barbiturates (SRS366) POSITI VE Not Available [address], [address], 10/11/2023 14:39:39 10/11/19 24 10/11/2023 drug scree n, urine Amphetamine ([id number]) negati ve Not Available [address], [address], 10/11/2023 14:39:39 10/11/19 24 10/11/2023 drug scree n, urine Benzodiazepi cecil (PDZ311) negati ve Not Available [address], [address], 10/11/2023 14:39:39 10/11/19 24 10/11/2023 drug scree n, urine Cocaine (QIV678) negati ve Not Available [address], [address], 10/11/2023 14:39:39 10/11/19 24 10/11/2023 drug scree n, urine MDMA (XJOD370) negati ve Not Available [address], [address], 10/11/2023 14:39:39 10/11/19 24 10/11/2023 drug scree n, urine Methamphetam ine ([id number]) negati ve Not Available [address] [place], [address], 10/11/2023 14:39:39 10/11/19 24 10/11/2023 drug scree n, urine Opiates (QUV064) negati ve Not Available [address], [address], 10/11/2023 14:39:39 10/11/19 24 10/11/2023 drug scree n, urine Methadone (FFM249) negati ve Not Available [address], [address], 10/11/2023 14:39:39 10/11/19 24 10/11/2023 drug scree n, urine Oxycodone (ZNT593) negati ve Not Available [address], [address], 10/11/2023 14:39:39 10/11/19 24 10/11/2023 drug scree n, urine Phencyclidin e (PCP25) negati ve Not Available [address], [address], 10/11/2023 14:39:39 10/11/19 24 10/11/2023 drug scree n, urine Tricyclic Anti-Depress ants ([id number]) negati ve Not Available [address], [address], 10/11/2023 14:39:39 10/11/19 24 10/11/2023 drug scree n, urine Marijuana (THC50) negati ve Not Available [address], [address], 10/11/2023 14:39:39 08/1410/11/2023 hemog lobin A1C, bettye rstic k hemoglobin A1C % 7.6 % 4.0 - 5.6 Not Available [address], [address], 10/11/2023 12:39:14 05/21/19 25 05/20/2024 COMPL ETE BLOOD COUNT white blood cells 5.9 10*3/ uL 3.8-10 .8 normal Not Available [facility] [address] [place] [address], [address], 05/20/2024 20:16:28 05/21/19 25 05/20/2024 COMPL ETE BLOOD COUNT red blood cells 4.61 10*6/ uL 3.80-5 .20 normal Not Available [facility] [address] [place] [address], [address], 05/20/2024 20:16:28 05/21/19 25 05/20/2024 COMPL ETE BLOOD COUNT hemoglobin 13.6 g/dL 12.0-1 6.0 normal Not Available [facility] [address] [place] [address], [address], 05/20/2024 20:16:28 05/21/19 25 05/20/2024 COMPL ETE BLOOD COUNT hematocrit 41.7 % 35.0-4 7.0 normal Not Available [facility] [address] [place] [address], [address], 05/20/2024 20:16:28 05/21/19 25 05/20/2024 COMPL ETE BLOOD COUNT MCV 90 fL 80-100 normal Not Available [facility] [address] [place] [address], [address], 05/20/2024 20:16:28 05/21/19 25 05/20/2024 COMPL ETE BLOOD COUNT MCH 30 pg 26-35 normal Not Available [facility] [address] [place] [address], [address], 05/20/2024 20:16:28 05/21/19 25 05/20/2024 COMPL ETE BLOOD COUNT MCHC 33 g/dL 32-36 normal Not Available [facility] [address] [place] [address], [address], 05/20/2024 20:16:28 05/21/19 25 05/20/2024 COMPL ETE BLOOD COUNT RDW 13.9 % 11.0-1 5.0 normal Not Available [facility] [address] [place] [address], [address], 05/20/2024 20:16:28 05/21/19 25 05/20/2024 COMPL ETE BLOOD COUNT MPV 8.5 fL 6.2-10 .5 normal Not Available [facility] [address] [place] [address], [address], 05/20/2024 20:16:28 05/21/19 25 05/20/2024 COMPL ETE BLOOD COUNT platelet count 292 10*3/ uL 150-40 0 normal Not Available [facility] [address] [place] [address], [address], 05/20/2024 20:16:28 05/21/19 25 05/20/2024 COMPL ETE BLOOD COUNT neutrophil,a bsolute 2.7 10*3/ uL 1.6-8. 4 normal Not Available [facility] [address] [place] [address], [address], 05/20/2024 20:16:28 05/21/19 25 05/20/2024 COMPL ETE BLOOD COUNT lymphocyte,a bsolute 2.5 10*3/ uL 0.4-5. 1 normal Not Available [facility] [address] [place] [address], [address], 05/20/2024 20:16:28 05/21/19 25 05/20/2024 COMPL ETE BLOOD COUNT monocyte,abs olute 0.5 10*3/ uL 0.0-1. 2 normal Not Available [facility] [address] [place] [address], [address], 05/20/2024 20:16:28 05/21/19 25 05/20/2024 COMPL ETE BLOOD COUNT eosinophil,a bsolute 0.2 10*3/ uL 0.0-0. 8 normal Not Available [facility] [address] [place] [address], [address], 05/20/2024 20:16:28 05/21/19 25 05/20/2024 COMPL ETE BLOOD COUNT basophil,abs olute 0.0 10*3/ uL 0.0-0. 3 normal Not Available [facility] [address] [place] [address], [address], 05/20/2024 20:16:28 05/21/19 25 05/20/2024 COMPL ETE BLOOD COUNT % neutrophils 45.8 % 42.0-7 8.0 normal Not Available [facility] [address] [place] [address], [address], 05/20/2024 20:16:28 05/21/19 25 05/20/2024 COMPL ETE BLOOD COUNT % lymphocytes 42.5 % 11.0-4 7.0 normal Not Available [facility] [address] [place] [address], [address], 05/20/2024 20:16:28 05/21/19 25 05/20/2024 COMPL ETE BLOOD COUNT % monocytes 8.6 % 0.0-11 .0 normal Not Available [facility] [address] [place] [address], [address], 05/20/2024 20:16:28 05/21/19 25 05/20/2024 COMPL ETE BLOOD COUNT % eosinophils 2.8 % 0.0-7. 0 normal Not Available [facility] [address] [place] [address], [address], 05/20/2024 20:16:28 05/21/19 25 05/20/2024 COMPL ETE BLOOD COUNT % basophils 0.3 % 0.0-3. 0 normal Not Available [facility] [address] [place] [address], [address], 05/20/2024 20:16:28 05/21/19 25 05/20/2024 COMPL ETE BLOOD COUNT nucleated red cells 0.0 % 0.0-0. 9 normal Not Available [facility] [address] [place] [address], [address], 05/20/2024 20:16:28 05/21/19 25 05/20/2024 COMPL ETE BLOOD COUNT nucleated RBCs, absolute 0.00 10*3/ uL not estab. normal Not Available [facility] [address] [place] [address], [address], 05/20/2024 20:16:28 05/21/19 25 05/20/2024 COMP. METAB OLIC PANEL glucose 164 mg/dL 74-100 high Not Available [facility] [address] [place] [address], [address], 05/20/2024 20:50:17 05/21/19 25 05/20/2024 COMP. METAB OLIC PANEL blood urea nitrogen 9 mg/dL 6-20 normal Not Available [facility] [address] [place] [address], [address], 05/20/2024 20:50:17 05/21/19 25 05/20/2024 COMP. METAB OLIC PANEL creatinine 0.85 mg/dL 0.50-0 .95 normal Not Available [facility] [address] [place] [address], [address], 05/20/2024 20:50:17 05/21/19 25 05/20/2024 COMP. METAB OLIC PANEL BUN/creatini ne ratio 11 (calc ) 10-20 normal Not Available [facility] [address] [place] [address], [address], 05/20/2024 20:50:17 05/21/19 25 05/20/2024 COMP. METAB OLIC PANEL sodium 142 mmol/ L 136-14 5 normal Not Available [facility] [address] [place] [address], [address], 05/20/2024 20:50:17 05/21/19 25 05/20/2024 COMP. METAB OLIC PANEL potassium 4.0 mmol/ L 3.4-5. 0 normal Not Available [facility] [address] [place] [address], [address], 05/20/2024 20:50:17 05/21/19 25 05/20/2024 COMP. METAB OLIC PANEL chloride 104 mmol/ L 98-107 normal Not Available [facility] [address] [place] [address], [address], 05/20/2024 20:50:17 05/21/19 25 05/20/2024 COMP. METAB OLIC PANEL carbon dioxide 23 mmol/ L 22-31 normal Not Available [facility] [address] [place] [address], [address], 05/20/2024 20:50:17 05/21/19 25 05/20/2024 COMP. METAB OLIC PANEL anion gap 15 (calc ) 7-25 normal Not Available [facility] [address] [place] [address], [address], 05/20/2024 20:50:17 05/21/19 25 05/20/2024 COMP. METAB OLIC PANEL calcium 9.3 mg/dL 8.6-10 .2 normal Not Available [facility] [address] [place] [address], [address], 05/20/2024 20:50:17 05/21/19 25 05/20/2024 COMP. METAB OLIC PANEL total protein 8.1 g/dL 6.4-8. 3 normal Not Available [facility] [address] [place] [address], [address], 05/20/2024 20:50:17 05/21/19 25 05/20/2024 COMP. METAB OLIC PANEL albumin 4.2 g/dL 3.5-5. 2 normal Not Available [facility] [address] [place] [address], [address], 05/20/2024 20:50:17 05/21/19 25 05/20/2024 COMP. METAB OLIC PANEL globulin 3.9 1.5-4. 5 normal Not Available [facility] [address] [place] [address], [address], 05/20/2024 20:50:17 05/21/19 25 05/20/2024 COMP. METAB OLIC PANEL albumin/glob ulin ratio 1.1 (calc ) 1.1-2. 5 normal Not Available [facility] [address] [place] [address], [address], 05/20/2024 20:50:17 05/21/19 25 05/20/2024 COMP. METAB OLIC PANEL bilirubin, total 0.3 mg/dL 0.1-1. 2 normal Not Available [facility] [address] [place] [address], [address], 05/20/2024 20:50:17 05/21/19 25 05/20/2024 COMP. METAB OLIC PANEL alkaline phosphatase 89 U/L 30-121 normal Not Available [facility] [address] [place] [address], [address], 05/20/2024 20:50:17 05/21/19 25 05/20/2024 COMP. METAB OLIC PANEL AST 28 U/L 0-32 normal Not Available [facility] [address] [place] [address], [address], 05/20/2024 20:50:17 05/21/19 25 05/20/2024 COMP. METAB OLIC PANEL ALT 26 U/L 0-33 normal Not Available [facility] [address] [place] [address], [address], 05/20/2024 20:50:17 05/21/19 25 05/20/2024 COMP. METAB OLIC PANEL GFR 72 >= 60 normal NOT E New calcu latio n for GFR (CKD- EPI 2020) is formu lated witho ut race adjus tment facto rs at the recom menda tion of the Natio nal Kid[employer] y [employer] ation and Ameri can Socie ty of Nephr ology . This calcu latio n has not been valid ated in pregn ant women . For pedia tric patie nts refer to https ://paradise grimaldo.kristin ling.o rg/zahida aguilar s/KDO QI/gf r_cal culat orPed Not Available [facility] [address] [place] [address], [address], 05/20/2024 20:50:17 05/21/19 25 05/20/2024 LIPID PROFI LE HDL cholesterol 60 mg/dL 50-242 normal Not Available [facility] [address] [place] [address], [address], 05/20/2024 20:50:18 05/21/19 25 05/20/2024 LIPID PROFI LE triglyceride s 108 mg/dL 0-149 normal TRIGL YCERI DE RANGE S AUTUMN L: < 150 BORDE RLINE HIGH: 150 - 199 HIGH: 200 - 499 VERY HIGH: > OR = 500 Not Available [facility] [address] [place] [address], [address], 05/20/2024 20:50:18 05/21/19 25 05/20/2024 LIPID PROFI LE cholesterol 134 mg/dL 0-199 normal YESICA STERO L (TOTA L) RANGE S STAN ABLE: < 200 BORDE RLINE : 200 - 239 HIGHE R RISK: > 239 Not Available [facility] [address] [place] [address], [address], 05/20/2024 20:50:18 05/21/19 25 05/20/2024 LIPID PROFI LE LDL cholesterol 52 mg/dL _(paul c) 0-99 normal LDL YESICA STERO L RANGE S OPTIM AL: < 100 NEAR/ ABOVE OPTIM AL: 100 - 129 BORDE RLINE HIGH: 130 - 159 HIGH: 160 - 189 VERY HIGH: > OR = 190 Not Available [facility] [address] [place] [address], [address], 05/20/2024 20:50:18 05/21/19 25 05/20/2024 LIPID PROFI LE chol/HDL ratio (calc) 2.2 mg/dL normal NO AUTUMN L RANGE ESTAB LISHE D FOR YESICA STERO L/HDL RATIO (CALC ULATE D). Not Available [facility] [address] [place], [address], 05/20/2024 20:50:18 05/21/19 25 05/20/2024 hemog lobin A1C, finge rstic k hemoglobin A1C % 8.4 % 4.0 - 5.6 Not Available [address], [address], 05/20/2024 16:20:13 05/25/19 23 05/24/2022 XR, lumbo sacra l spine , 4 or more view [address] [place] [address] Chersandra bush Name: GEMMA bush : [address] An[address] bush 7 Orderi ng Provid er: OMADA I OMOSEB I EXAM DATE: 2022 EXAM: XR LUMBAR SPINE AP/LAT /FLEX/ EXT CLINIC AL INFORM ATION: Back pain. IMAGES PROVID ED: AP, latera l and coned- down views of the lumbar spine with additi onal latera l views in flexio n and extens ion. COMPAR ROLAND: None. FINDIN GS AND IMPRES JESUS: L4-L5 spinal fusion is noted. Surgic al hardwa re is satisf actori ly placed . No abnorm al hardwa re moveme nt is seen. Degene rative change s are seen at other levels . No instab ility. Interp reted By: Eric Duran MD Electr onical ly Signed By: Eric Duran MD on 023 12:24 PM [email or web address] [facility] [address] [place] [address], [address], 06/07/2022 14:48:08 12/02/19 23 12/01/2022 XR, chest , 2 view [facility] [address] [facility] [place] [address] Patien t Name: GEMMA bush : [address] t 7 Orderi ng Provid er: OMADA OMOSEB I EXAM DATE: 2022 EXAM: XR CHEST PA/LAT CLINIC AL INFORM ATION: Chest pain. IMAGES PROVID ED: PA and latera l views of the chest. COMPAR ROLAND: None. FINDIN GS: Heart size is within normal limits . Lung dewitt are clear. IMPRES JESUS: No acute cardio pulmon elvis change s. Interp reted By: Eric Duran MD Electr onical ly Signed By: Eric Duran MD on 023 5:01 PM [email or web address] [address], [address], 12/13/2022 16:17:42 12/02/19 23 12/01/2022 XR, cervi paul spine , 4 or 5 view [facility] [address] [facility] [place] [address] Patien t Name: GEMMA Jorge t : [address] Pat[address] t 7 Orderi ng Provid er: OMADA OMOSEB I EXAM DATE: 2022 EXAM: XR CERVIC AL SPINE AP/LAT /FLEX/ EXT CLINIC AL INFORM ATION: Neck pain. IMAGES PROVID ED: Latera l views of the cervic al spine in flexio n and extens ion. COMPAR ROLAND: None. FINDIN GS AND IMPRES JESUS: C4-C7 spinal fusion is noted. Surgic al hardwa re is satisf actori ly placed . No abnorm al hardwa re moveme nt is seen in flexio n or extens ion. There is grade 1 antonio listhe sis of C2 over C3. It measur es 5 mm in flexio n and disapp ears in extens ion. Interp reted By: Eric Duran MD Electr onical ly Signed By: Eric Duran MD on 023 5:02 PM [email or web address] [facility] [address], [address], 12/13/2022 14:03:35 Result Notes Documentation Provider Name and Address Organization Details Recorded Time Xr, Chest, 2 View : [address] [address] Patient Name: GEMMA GUSTAFSON Patient : 1950 Patient Ordering Provider: SATISH NAVARRO EXAM DATE: 12/01/2022 EXAM: XR CHEST PA/LAT CLINICAL INFORMATION: Chest pain. IMAGES PROVIDED: PA and lateral views of the chest. COMPARISON: None. FINDINGS: Heart size is within normal limits. Lung dewitt are clear. IMPRESSION: No acute cardiopulmonary changes. Interpreted By: Td Duran MD Mary Pina [facility] 12/13/2022 16:17:42 Xr, Cervical Spine, 4 Or 5 View : [address] [address] Patient Name: GEMMA GUSTAFSON Patient : 1950 Patient Ordering Provider: SATISH NAVARRO EXAM DATE: 12/01/2022 EXAM: XR CERVICAL SPINE AP/LAT/FLEX/EXT CLINICAL INFORMATION: Neck pain. IMAGES PROVIDED: Lateral views of the cervical spine in flexion and extension. COMPARISON: None. FINDINGS AND IMPRESSION: C4-C7 spinal fusion is noted. Surgical hardware is satisfactorily placed. No abnormal hardware movement is seen in flexion or extension. There is grade 1 anterolisthesis of C2 over C3. It measures 5 mm in flexion and disappears in extension. 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 939487493 Active Not Available [employer] 4 15:38:53 Obesity 858483058 Completed 201505/20/2024 From [employer];Pro vider: Alayna Gramajo;S tatus: Active KATHARINE MURRAY MD [address] [place] [address], [address] [place] [address] 5 16:19:27 Type 2 diabetes mellitus without complica tion 661888450 Completed 201510/11/2023 From [employer];Pro vider: Alayna Gramajo;S tatus: Active KATHARINE MURRAY MD [address] [place] [address], [address] [place] [address] 4 12:36:31 Seizure 54435827 Active 2015 From [employer];Pro vider: Alayna Gramajo;S tatus: Active KATHARINE MURRAY MD [address] [place] [address], [address] [place] [address] 4 15:03:53 Presbyop ia 17678541 Active 2015 From [employer];Pro vider: Deuce Machado; Status: Active KATHARINE MURRAY MD [address] [place] [address], [address] [place] [address] 4 12:36:34 Exotropi a 329700455 Active 2015 From [employer];Pro vider: Deuce Machado; Status: Active KATHARINE MURRAY MD [address] [place], [address] , [facility] 4 12:36:38 Hyperlip idemia 79158012 Active 2015 From [employer] Load;Pro vider: Belcastr o, Alayna;S tatus: Active KATHARINE MURRAY [place] [facility] [place], [address] , [facility] 4 12:36:22 Cataract 535708070 Active 2016 KATHARINE MURRAY MD [facility] [place], [address] , [facility] 4 12:36:39 Burning sensatio n 91303283 Completed 201910/11/2023 KATHARINE MURRAY MD [facility] [place], [address] , [facility] 4 12:36:42 Essentia l hyperten jesus 59464163 Active 2023 KATHARINE MURRAY MD [facility] [place], [address] , [facility] 4 12:36:51 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 62094141398 07 Active 2023 KATHARINE MURRAY MD [facility] [place], [address] , [facility] 4 12:44:08 Cerebrov ascular disease 13956807 Active 2023 KATHARINE MURRAY MD [facility] [place], [address] , [facility] 4 15:03:59 Seizure disorder 103511525 Active 2023 KATHARINE MURRAY MD [facility] [place], [address] , [facility] 4 15:03:56 Foot callus 894028362 Active 2023 KATHARINE MURRAY MD [address] [place] [address], [address] , [facility] 4 15:04:01 Edema of lower extremit y 124537955 Active 2023 KATHARINE MURRAY MD [address] [place] [address], [address] [place] [address] 5 14:56:02 Morbid obesity 264682680 Active 2024 KATHARINE MURRAY MD [address] [place] [address], [address] [place] [address] 5 16:19:20 Problem Notes None recorded. Procedures Surgical History Date Name Laterality Status Provider Name and Address Organization Details Recorded Time 10/11/19 Diabetic Foot Exam completed KATHARINE MURRAY MD [address] [place] [address], [address], [facility] 10/11/2023 14:55:38 07/10/19 Diabetic Foot Exam completed SATISH NAVARRO MD [address] [place] [address], [address] [place] [address] 07/10/2021 21:51:13 05/14/19 20 lumbar spinal fusion completed Carmella Villeda [facility] 09/18/2019 09:52:57 04/12/19 20 DXA Normal completed LEIGH ANN GRACIA MD [address] [place] [address], [phone] [place] [address] 04/12/2019 12:12:32 10/24/19 19 Cerumen removal - Instruments, Bilateral completed DEUCE LOO MD [address] [place] [address], [phone] [place] [address] 10/23/2018 10:41:00 10/04/19 19 Diabetic Foot Exam completed SATISH NAVARRO MD [address] [place] [address], [address] 10/03/2018 11:57:36 01/10/20 19 Date of Last Mammogram completed Anu Puga [facility] 10/03/2018 10:34:11 12/02/19 17 Excision Chalazion completed DEUCE MACHADO MD [address] [place] [address], [id number], [facility] 12/01/2016 16:32:17 Hysterectomy/rev ise vagina completed Jeremiah Sheldon [facility] 12/01/2016 15:20:08 Colonoscopy completed Anu [facility] 10/03/2018 10:19:07 Hysterectomy completed Anu [facility] 10/03/2018 10:19:07 Imaging Results None recorded. Procedure Notes None recorded. Medical Equipment None Reported. Allergies Allergen ID Allergen Name Allergen Category Reaction Reaction Severity Criticality Documentation Date Start Date Code Code System Note Provider Name and Address Organization Details Recorded Time 829040 glipizide medicatio n Not available Not available Not available 01/21/20162009 4821 RxNorm Comme nt: hypog lycem ia;Cr eated By: Jerson Luz ia;Cr eated Date: 2009 9:42: 30 PM; Not Available [facility] 6 11:47:22 Medications Name Sig Start Date Stop Date Status Note LastModified by Organization Details LastModified Time Prescript ion - Renewal 10/03 completed Not Available Not Available Not Available cyclobenz aprine 10 mg tablet Take 1 tablet every day by oral route as needed. 04/16 completed Not Available Not Available Not Available amoxicill in 500 mg capsule 05/20 completed Not Available Not Available Not Available furosemid e 40 mg tablet Take 1 tablet twice a day by oral route for 90 days. active Not Available Not Available No t Available furosemid e 10 mg/mL injection solution Take 2 mL by injectio n route. 09/17 completed Not Available Not Available Not Available atorvasta tin 40 mg tablet Take 1 tablet every day by oral route for 90 days. active Not Available Not Available No t Available metformin 500 mg tablet Take 1 tablet every day by oral route for 90 days. 12/05 completed Not Available Not Available Not Available Percocet 7.5 mg-325 mg tablet Take 1 tablet every 6 hours by oral route as needed. 07/25 completed Not Available Not Available Not Available azelastin e 0.05 % eye drops 1 drop Two times a day 08/20 completed Not Available Not Available Not Available doxycycli ne hyclate 100 mg capsule Take 1 capsule twice a day by oral route for 30 days. 01/16 completed Not Available Not Available Not Available pravastat in 40 mg tablet TAKE ONE TABLET BY MOUTH EVERY NIGHT AT BEDTIME 02/25 completed changed to lipitor in hospital 01/2019 Not Available Not Available Not Available hydrocodo ne 5 mg-acetam inophen 325 mg tablet 01/12 completed Not Available Not Available Not Available Lipitor 80 mg tablet Take 1 tablet every day by oral route for 90 days. 01/12 completed Not Available Not Available Not Available meloxicam 15 mg tablet Take 1 tablet every day by oral route as needed. 04/05 completed Not Available Not Available Not Available atenolol 25 mg tablet TAKE 1 TABLET BY MOUTH DAILY 2024 active Not Available Not Available Not Avai lable cyanocoba anival (vit B-12) 1,000 mcg tablet 1 tab po q day 11/15 completed Not Available Not Available Not Available phenytoin sodium extended 100 mg capsule take 2 tablets by mouth daily. 04/16 completed Not Available Not Available Not Available clopidogr el 75 mg tablet Take 1 tablet every day by oral route for 90 days. 2024 active Not Available Not Available Not Avai lable aspirin 81 mg tablet,de layed release Daily 12/01 completed Frequenc y: daily;Me dication Descript ion: aspirin; Dosage:1 ; Route:or al; refills: 0; Quantity :30 delayed release tablet Not Available Not Available Not Available Kenalog 40 mg/mL suspensio n for injection Take 60 mg by injectio n route. 06/07 completed Not Available Not Available Not Available hydrocort isone 2.5 % topical cream with perineal applicato r 09/17 completed Not Available Not Available Not Available triamcino lone acetonide 0.1 % dental paste apply 1/4 inch qhs active Not Available Not Available No t Available aspirin 325 mg tablet,de layed release 1 tab po q day 03/11 completed Not Available Not Available Not Available OneTouch Ultra Test strips Daily 03/11 completed Duration : 90 days;Ins truction s: Alternat e brand acceptab le as approved by patient insuranc e. DX: E11.9;Fr equency: daily;Me dication Descript ion: Supplies ; Dosage:2 ; refills: 3; Quantity :180 Not Available Not Available Not Available hydrocodo ne 7.5 mg-acetam inophen 325 mg tablet Take 1 tablet 3 times a day by oral route as needed. 12/01 completed Not Available Not Available Not Available cephalexi n 500 mg capsule Take 1 capsule every 8 hours by oral route for 7 days. 02/23 completed Not Available Not Available Not Available metformin 1,000 mg tablet Take 1 tablet twice a day by oral route for 90 days. 07/04 completed disconti nued during hospital ization secondar y to diarrhea Not Available Not Available Not Available prednison e 50 mg tablet 01/12 completed Not Available Not Available Not Available gabapenti n 300 mg capsule Take 1 capsule 3 times a day by oral route for 30 days. 2024 active Not Available Not Available Not Avai lable mupirocin 2 % topical ointment APPLY A SMALL AMOUNT TO THE AFFECTED AREA BY TOPICAL ROUTE 3 TIMES PER DAY FOR 7 DAYS active Not Available Not Available No t Available gabapenti n 100 mg capsule TAKE ONE TO TWO CAPSULES BY MOUTH THREE TIMES A DAY NEEDED 06/17 completed increase d dose Not Available Not Available Not Available methylpre dnisolone 4 mg tablets in a dose pack Take as directed . 12/01 completed Not Available Not Available Not Available Phenytek 200 mg capsule Take 2 capsules every day by oral route for 90 days. 2024 active Not Available Not Available Not Avai lable lisinopri l 40 mg tablet Take 1 tablet every day by oral route for 90 days. 2024 active Not Available Not Available Not Avai lable dicyclomi ne 10 mg capsule Take 1 capsule 4 times a day by oral route for 30 days. 10/10 completed Not Available Not Available Not Available Klor-Con M20 mEq tablet,ex tended release TAKE ONE TABLET BY MOUTH TWICE A DAY active Not Available Not Available No t Available metoprolo l tartrate 25 mg tablet TAKE ONE TABLET BY MOUTH TWICE A DAY 03/11 completed Not Available Not Available Not Available pregabali n 75 mg capsule Take 1 capsule twice a day by oral route. 08/12 completed 'off balance' , dizzines s Not Available Not Available Not Available Calcium-V itamin D Daily 03/11 completed Frequenc y: daily;Me dication Descript ion: calcium- vitamin D; Dosage:2 ; Route:or al; refills: 5; Quantity :60 tablet Not Available Not Available Not Available calcium active Not Available Not Avail able Not Available iron 10/10 completed Not Available Not Available Not Available Percocet 01/12 completed Not Available Not Available Not Available One Touch Lancets Two times a day 03/11 completed Instruct ions: Alternat e brand acceptab le as approved by patient insuranc e. DX: E11.9;Fr equency: bid;Medi cation Descript ion: Supplies ; Dosage:1 ; refills: 3; Quantity :180 Not Available Not Available Not Available Januvia 50 mg tablet Take 1 tablet every day by oral route for 90 days. 11/15 completed Not Available Not Available Not Available Januvia 100 mg tablet Take 1 tablet every day by oral route for 90 days. 07/29 completed replaced with janumet Not Available Not Available Not Available Janumet 50 mg-500 mg tablet Take 1 tablet twice a day by oral route for 90 days. 2024 active Not Available Not Available Not Avai lable Janumet 50 mg-1,000 mg tablet TAKE ONE TABLET BY MOUTH TWICE A DAY active Not Available Not Available No t Available Suprep Bowel Prep Kit 17.5 gram-3.13 gram-1.6 gram oral solution DIRECTED 03/27 completed Not Available Not Available Not Available Polycin 500 unit-10,0 00 unit/gram eye ointment Apply 1 applicat ion twice a day by ophthalm ic route. 01/16 completed Not Available Not Available Not Available Preparati on H(phenyle ph,cocoa buttr) 0.25 %-88.44 % rectal supposito ry Insert 1 supposit ory 3 times a day by rectal route as needed for 7 days. 04/10 completed Not Available Not Available Not Available Jardiance 25 mg tablet 2024 active Not Available Not Available Not Avai lable Ozempic 0.25 mg or 0.5 mg (2 mg/3 mL) subcutane ous pen injector Inject 0.25 mg every week by subcutan eous route for 28 days. 12/05 completed Not Available Not Available Not Available Vitals Date Recorded Body height Body mass index (BMI) Body weight Heart rate Respiratory rate Oxygen saturation Oxygen saturation in Arterial blood by Pulse oximetry Systolic And Diastolic Provider Name and Address Organization Details Last Updated DateTime 4 160.02 cm 48.4 kg/m2 395888. 72 g 77 /min 18 /min 98 % 98 % 120/72 mm[Hg] [facility] 4 15:25:34 Date Recorded Body height Body mass index (BMI) Body weight Body temperature Respiratory rate Heart rate Oxygen saturation Oxygen saturation in Arterial blood by Pulse oximetry Systolic And Diastolic Provider Name and Address Organization Details Last Updated DateTime 5 160.02 cm 49.8 kg/m2 626530. 46 g 98.9 [degF] 16 /min 100 /min 95 % 95 % 142/86 mm[Hg] [facility] 5 16:12:35 Date Recorded Body height Respiratory rate Heart rate Oxygen saturation Oxygen saturation in Arterial blood by Pulse oximetry Systolic And Diastolic Provider Name and Address Organization Details Last Updated DateTime 3 160.02 cm 18 /min 74 /min 98 % 98 % 164/82 mm[Hg] [facility] 3 11:02:12 Date Recorded Body height Body temperature Respiratory rate Heart rate Oxygen saturation Oxygen saturation in Arterial blood by Pulse oximetry Body mass index (BMI) Body weight Systolic And Diastolic Provider Name and Address Organization Details Last Updated DateTime 4 160.02 cm 98.8 [degF] 18 /min 90 /min 96 % 96 % 50.3 kg/m2 381004. 95 g 160/90 mm[Hg] Diandra Bah [facility] 4 14:06:43 Date Recorded Body height Body mass index (BMI) Body weight Respiratory rate Heart rate Oxygen saturation Oxygen saturation in Arterial blood by Pulse oximetry Systolic And Diastolic Provider Name and Address Organization Details Last Updated DateTime 3 160.02 cm 46.8 kg/m2 651143. 39 g 18 /min 80 /min 98 % 98 % 142/80 mm[Hg] Mary Pina [facility] 3 15:45:41 Social History Question Answer Notes LastModified by Organizat ion Details LastModified Time Tobacco Smoking Status [facility] 10:25:42 What Is Your Level Of Caffeine Consumption? Moderate Information not available 05/03/2016 How Much Tobacco Do You Chew? None [email or web address] Information not available 05/03/2016 What Type Of Diet Are You Following? REGULAR [email or web address] Information not available 05/03/2016 Education 12 [email or web address] Information n ot available 05/03/2016 Swimming/diving No [email or web address] Informat ion not available 05/03/2016 Are There Any Guns Present In Your Home? No [email or web address] Information not available 05/03/2016 Hard Of Hearing Or Deaf In One Or Both Ears? No [email or web address] Information not available 05/03/2016 Legally Blind In One Or Both Eyes? No Information not available 05/03/2016 Live Alone Or With Others? Alone [email or web address] Information not available 05/03/2016 Marital Status [email or web address] Informati on not available 05/03/2016 What Was The Date Of Your Most Recent Tobacco Screening? 04/07/2023 Information not available 04/07/2023 How Many Children Do You Have? 3 [email or web address] Information not available 05/03/2016 Seat Belts Used Routinely Yes [email or web address] Information not available 05/03/2016 Are You Sexually Active? No [email or web address] Information not available 05/03/2016 Smoke Alarm In Home Yes [email or web address] Information not available 05/03/2016 At What Age Did You Start Smoking Tobacco? 20 [email or web address] Information not available 10/03/2018 Are You Passively Exposed To Smoke? No [email or web address] Information not available 05/03/2016 How Much Tobacco Do You Smoke? 0.5 PPD [email or web address] Information not available 10/03/2018 General Stress Level Low [email or web address] Information not available 05/03/2016 Do You Use Sunscreen Routinely? No [email or web address] Information not available 05/03/2016 Has Tobacco Cessation Counseling Been Provided? No [email or web address] Information not available 05/03/2016 How Many Years Have You Smoked Tobacco? 30 [email or web address] Information not available 10/03/2018 Sex: Unknown Functional Status Question Answer Note LastModified by Organizat ion Details LastModified Time Do you or have you ever used any other forms of tobacco or nicotine? No Information not available 01/12/2021 What is your level of alcohol consumption? None Information not available 04/10/2019 Do you or have you ever used smokeless tobacco? Never used smokeless tobacco [email or web address] Information not available 04/10/2019 Are you able to care for yourself? Yes [email or web address] Information not available 05/03/2016 Do you or have you ever used e-cigarettes or vape? Never used electronic cigarettes [email or web address] Information not available 04/10/2019 What is your exercise level? None [email or web address] Information not available 05/03/2016 Mental Status None recorded. Family History Relationship Description Onset Age of this Age Resolved Age Notes LastModified by Organization Details LastModified Time Unspecified Relation Obese [email or web address] Not available 05/03 10:56:10 Unspecified Relation Sleep disorder [email or web address] Not available 08/2016 10:56:19 Unspecified Relation Heart disease [email or web address] Not available 10:04:12 Unspecified Relation Cerebrovascu lar accident [email or web address] Not available 04/18/2019 10:04:21 Sister Cataract Not available 10/03/2018 10:18:26 Sister Hypertensive disorder [email or web address] Not available 2016 15:19:28 Maternal Grandmother Cataract Not available 08/2018 10:18:26 Maternal Grandmother Hypertensive disorder [email or web address] Not available 2016 15:19:28 Maternal Grandmother Glaucoma [email or web address] Not available 08/2018 10:18:26 Maternal Grandmother Age related macular degeneration [email or web address] Not available 08/2018 10:18:26 Maternal Aunt Cataract [email or web address] Not av ailable 10/03/2018 10:18:26 Brother Diabetes mellitus [email or web address] Not available 2016 15:18:29 Brother Hypertensive disorder [email or web address] Not available 2016 15:19:28 Maternal Uncle Diabetes mellitus [email or web address] Not available 2016 15:18:29 Paternal Aunt Diabetes mellitus [email or web address] Not available 2016 15:18:29 Medical History Condition Response Coronary Artery Disease N Gout N Other N Atrial Fibrillation N Kidney Stones N Hyperthyroidism N Blood Transfusion N Hypothyroidism N Lung Disease N Depression N COPD N Breast Problem N Difficulty Swallowing N Anxiety Disorder N Meniere's disease N Muscle, Joint, or Bone Problems N Vision or Eye Problems N Arthritis Y Infertility N Polyps N Blood Clot N Cancer N Stroke Y Varicosities N Endometriosis N Bladder or Kidney Problems N High Cholesterol Y Liver Disease N Fibromyalgia N Headaches N Kidney Disease N Allergies/Hayfever N Heart Problems N Parkinson's Disease N Ear or Hearing Problems N Hospitalizations N Alzheimer's N Thyroid Problems N GI Problems N Eating Disorder N Skin Problems N Anemia N Constipation N Mental Illness N Diabetes Y Ovarian Cancer N Seizures/Epilepsy N Tuberculosis N Eczema N Diverticulitis N Cataract Y Asthma N Reflux/GERD N Hepatitis N Heart Disease N Pulmonary Embolism N Chronic Ear Infections N Pre-Eclampsia N Hypertension Y Chicken Pox N Osteoporosis N Thrombophilias N Glasses/Contacts Y Gynecological History Statement/Question Response STIs/STDs N Date of Last Pap Smear Date of Last Mammogram 03/08/2018 Sexually Active? N Obstetrics History GPAL:G 3 P 3 0 0 0 Type Value Full Term 3 Total 3 Immunizations Vaccine Type Date Status Note Provider Nam e and Address Organization Details Recorded Time COVID-19, mRNA, LNP-S, PF, 100 mcg/0.5mL dose or 50 mcg/0.25mL dose 1 completed [facility] 05/20/2024 16:06:53 Td (adult), 2 Lf tetanus toxoid, preservative free, adsorbed 3 completed [facility] 05/20/2024 16:06:53 Hep B, adult 3 completed [facility] 05/20/2024 16:06:53 pneumococcal, unspecified formulation 2 completed Lilian Whitney [facility] 01/16/2018 13:26:15 Past Encounters Encounter ID Performer Location Encounter Start Date Encounter Closed Date Diagnosis/Indication Diagnosis SNOMED-CT Code Diagnosis ICD10 Code Diagnosis Note [id number] ALAYNA VILLEGAS MD [address] [place] [address] 05/03/2016 07:58:54 05/03/2016 09:17:26 Type 2 diabetes mellitus without complication 964146957 E11.9 Pt's Hba1c is 5.5 doing well w/o side effect having some diarrhea ? metformin side effect if labs fine will do trial off metformin to see if that helps gi symptoms. nl DM foot exam today, no neuropathy , eye exam due in July. Hypertensive disorder 38 700842 I10 controlled labs as above Hyperlipidemia 94130566 E78.5 check fasting lipids continue meds Seizure 31757032 R56.9 continue meds check levels Obstructiv e sleep apnea syndrome 01913857 G47.33 compliant doing well History of cerebrovascular accident 293177594 Z86.73 on asa/statin no further epsiodes [id number] ALAYNA VILLEGAS MD [address] [place] [address] 11/15/2016 10:28:55 11/15/2016 12:41:59 Type 2 diabetes mellitus without complication 932555649 E11.9 DM well controlled set up DM eye exam continue with medication s no side effects refill meds Hypertensive disorder 38 131825 I10 controlled labs as below continue with meds Seizure 28879749 R56.9 seizure after cva with no recurrent seizures stable check levels does not wish to hold med at this time. Hyperlipidemia 46284868 E78.5 continue statin fasting at next visit Obstructiv e sleep apnea syndrome 87555322 G47.33 compliant doing well History of cerebrovascular accident 893881837 Z86.73 on asa/statin no further episodes Screening mammography 24 633857 Z12.31 order yearly screening [id number] DEUCE MACHADO MD [facility] [address] [place] [address] 12/01/2016 14:52:16 12/02/2016 08:01:03 Type 2 diabetes mellitus without complication 857997763 E11.9 no retinopath y ouI discussed diabetes with this patient. I discussed the importance of sugar control for reducing risk of diabetic complicati ons in the eyes. I recommened they follow up with their PCP/endocr inologist for continue sugar evaluation /managemen t. Also discussed importance of cardiovasc ular risk reduction. Call with changing/f luxuating vision. Incipient senile cataract 082878750 H25.099 mild obs. Chalazion of lower eyelid 654103388 H00.19 not responding to conservati ve measures. rec I/dpolycin bid od wcs tid odrtc 2 weeks, may need injectster oid as mostly scar tissue present [id number] DEUCE MACHADO MD [facility] [address] [place] [address] 12/15/2016 14:04:27 12/16/2016 14:39:53 Chalazion of lower eyelid 016708636 H00.19 ineffectiv e i/ddsiucss ed doxycyclin e vs injectionr ec doxy 100mg bid hot compresses .rtc 1 mo and prn. [id number] DEUCE MACHADO MD [facility] [address] [place] [place] [address] 01/16/2017 13:58:02 01/17/2017 07:07:05 Chalazion of lower eyelid 800192738 H00.19 still present. discussed injectionp t desires obs for now 1 year complete dm check, call back if any problems [id number] ALAYNA VILLEGAS MD [facility] [address] [place] [address] 05/15/2017 14:40:31 05/15/2017 15:52:41 Type 2 diabetes mellitus without complication 433194175 E11.9 DM great today on recheck no hypoglycmi c events DM at goal of hba1c <7 if continues to loose weight will pill back medicaton at next vsiit. check glucose on cmp panel today Hypertensive disorder 38 891353 I10 controlled labs as below continue with meds Seizure 62881955 R56.9 seizure after cva with no recurrent Hyperlipidemia 35162211 E78.5 continue statin fasting at next visit Obstructiv e sleep apnea syndrome 92269711 G47.33 compliant doing well History of cerebrovascular accident 660411207 Z86.73 on asa/statin no further episodes [id number] ALAYNA VILLEGAS MD [facility] [address] [place] [address] 03/07/2018 09:36:35 03/07/2018 11:10:27 Hypertensive disorder 24814773 I10 BP goal <140/90 pt is at goal and tolerating medication well with out side effect will continue current therapy Type 2 mary betes mellitus without complication 564273732 E11.9 Hba1c goal <7 patient is a goal we will back off her dedication stop the Janumet and change her back to Plendil metformin. DM eye exam:we'll schedule eye exam DM foot exam:foot exam up-to-date Microalbum in:microal bumin done today statin therapy:rodríguez dewitt continues statin therapy asa:is on aspirin Pt is tolerating meds well w/o side effect and no hypoglycem ic episodes will continue current medication Seizure 62479090 R56.9 patient with a history of seizure after CVA she's been maintained on phenytoin would like her to recheck with neurology to see if this is necessary. However she declines at this time discussed to not take more medication than prescribed we will check until level today. Hyperlipidemia 82267533 E78.5 LDL goal <100 continue with current meds no medication side effect Obstructiv e sleep apnea syndrome 77231179 G47.33 compliant doing well History of cerebrovascular accident 116979986 Z86.73 on asa/statin no further episodes Dry skin 16842129 L85.3 patient is complainin g of recent risk and has used several hydrating over-the-c ounter lotions will check a TSH Screening mammography 24 191197 Z12.31 order yearly screening Diabetic p eripheral neuropathy 209506476 E11.40 patient does not use 6 tablets a day reports she never uses more than 4 we will go ahead and adjust medication quantity to allow for this. Patient reports she does have some trouble with neuropathy night and this helps very much Screening for malignant neoplasm of colon 342282875 Z12.11 patient: Colonoscop y would will do fecal occult testing. [id number] ALAYNA VILLEGAS MD [address] [place] [address] 03/15/2018 13:30:28 03/15/2018 16:40:21 Screening for malignant neoplasm of colon 336423900 Z12.11 [id number] SATISH NAVARRO MD [address] [place] [address] 10/03/2018 10:16:05 10/03/2018 18:48:01 Hypertensive disorder 73560650 I10 Well-contr olled on current regimen. Medication refills today. Type 2 mary betes mellitus without complication 183019626 E11.9 Last A1c February 2018 5.5. At goal. Currently on metformin, previously on Janumet. Repeat A1c today. Counseled diet and exercise. Diabetic p eripheral neuropathy 548599862 E11.40 Diabetic foot exam performed today revealed diminished sensation bilateral foot soles. Patient is hesitant to increase the dose of Neurontin. Currently on 200 mg 3 times a day. Discussed trial of nighttime dose increase by 200mg and monitor symptoms. Patient agreeable with plan. Order for diabetic shoes provided. Hyperlipidemia 72595370 E78.5 LDL at goal Body mass index 40+ - severely obese 001427851 Z68.41 Seizure disorder 2157824 02 G40.909 Hearing loss 40493468 H9 1.93 discussed possibilit y of age-relate d changes. Patient will need a hearing test. No abnormalit ies found on physical examinatio n. Discussed plan to be evaluated by ENT. [id number] DEUCE LOO MD [facility] [address] [place] [id number] 10/23/2018 10:08:39 10/25/2018 12:22:32 Impacted cerumen 95244005 H61.23 Removed from each canal. Audiogram was performed because her friends have noted that her TV volume has been quite elevated. Audiogram reviewed and perfectly normal. No treatment needed [id number] ASHLEY LUJAN [facility] [address] [place] [address] 10/23/2018 10:39:36 10/23/2018 10:54:47 Hearing examination 410208900 Z01.10 [id number] PAULINE VILLEGAS MD [address] [address] 02/25/2019 12:33:40 02/25/2019 17:26:32 Painless rectal bleeding 813363940 K62.5 this appears to be coming from her hemorrhoid s. We will treat this with some Anusol HC cream, avoid constipati on. She states a prescripti on cream for her hemorrhoid s was called in last night from the emergency room but she never picked it up. avoid constipati on. Cerebrovas cular accident 256552383 I63.9 Hospital follow-up for this. The Plavix plus aspirin is worrisome for worsening this bleeding issue. For now, have her discontinu e the aspirin but continue the Plavix, I don't see active bleeding at this time. [id number] SATISH NAVARRO MD [address] [address] 02/28/2019 08:34:26 03/04/2019 11:37:04 History of cerebrovascular accident 464874682 Z86.73 PT appt pending, to establish care with Neuro. Painless r ectal bleeding 572061832 K62.5 Likely from hemorrhoid s, will try the prep H supp. Check labs, H&H, GI referral requested. Hemorrhoids 77326166 K64 .9 start prep H supp. [id number] JULIETTE RICHARD MD GASTRO SB [address] [facility], [address] [place] [address] 03/11/2019 10:45:49 03/12/2019 14:05:03 [id number] JOSHUA ANDERSON MD SURGERY SCHEDULE [address] [place] [address] 03/20/2019 08:50:29 03/20/2019 08:53:21 [id number] SATISH NAVARRO MD [address] [address] 03/27/2019 14:40:15 04/02/2019 13:07:37 Hyperlipidemia 75506845 E78.5 LDL at goal, currently on lipitor Aphthous u lcer of mouth 153516102 K12.0 Recommende d OTC oragel Burning sensation 437213 00 R20.8 Burning pain sensation in face, ongoing for a while, less likely shingles, possible Trigeminal neuralgia, possibly related to complicati on from recent CVA, has appt with Neuro coming up, will appreciate opinion. Hypertensive disorder 38 813766 I10 Well-contr olled on current regimen. Medication refills today. Type 2 mary betes mellitus without complication 249980726 E11.9 Last A1c February 2018 5.5. At goal. Currently on metformin, previously on Janumet. Repeat A1c today. Counseled diet and exercise. Seizure disorder 9845922 02 G40.909 No recent sz, continue phenytoin, check levels History of cerebrovascular accident 990229517 Z86.73 initial plan from hospital DC had been to stay on ASA + plavix for 2 months but ASA was DC due to GI bleed, advised to restart plavix, appt pending to establish care with Neuro. Pain of ri ght hip joint 0114616573 62463 M25.551 likely related to arthritis, sciatica, ddx bursitis, SI jt pain vs CLBP, recommende d wt loss, start Meloxicam, precaution s given with recent lower GI bleed. Already on gabapentin , may need to be adjusted if symptoms continue to persist. Pt agreeable to start therapy on hip, HH notified to include in her current management . Long-term drug therapy 994205821 Z79.704 [id number] SATISH NAVARRO MD [address] [address] 04/10/2019 09:21:11 04/16/2019 08:27:35 Adult health examination 946406365 Z00.00 Screening for malignant neoplasm of breast 446788076 Z12.31 Viral screening 12742081 4 Z11.59 At [facility] risk for falls 389405727 Z91.81 currently in PT Aphthous u lcer of mouth 158893021 K12.0 No improvemen t with OTC oragel, start triamcinol one dental paste Postmenopausal state 764 35053 Z78.0 recommende d calcium and vit D supplement s Type 2 mary betes mellitus without complication 666417975 E11.9 Last A1C February 2019 6.2. At goal. Due for eye exam. [id number] LEIGH ANN GRACIA MD BONE DENSITY [facility] [address] [facility] [place] [address] 04/12/2019 09:47:45 04/12/2019 14:22:27 Menopausal syndrome 625935177 N95.8 [id number] MAR OSORIO MD NEUROLOGY [facility] [address] [place] [address] 04/18/2019 09:40:57 04/18/2019 11:39:00 Ischemic stroke 444269263 I63.9 Lumbar radiculopathy 128 145662 M54.16 [id number] JULIETTE SANTIAGO JR, MD [facility] [address] [place] [address] 04/26/2019 09:58:24 04/26/2019 15:20:24 Lumbar spondylosis 224024450 M47.143 [id number] JULIETTE SANTIAGO JR, MD SURGERY SCHEDULE [address] [place] [address] 05/14/2019 15:27:36 05/17/2019 15:31:35 [id number] JULIETTE SANTIAGO JR, MD NEUROSURG [facility] CL[facility] [address] [place] [address] 05/27/2019 10:50:04 05/27/2019 11:10:34 [id number] JULIETTE SANTIAGO JR, MD NEUROSURG [facility] CL[facility] [address] [place] [address] 06/26/2019 14:48:04 07/02/2019 16:41:39 Lumbar spondylolisthesis 2382950792 02914 M43.16 [id number] SATISH NAVARRO MD [facility] [address] [facility] [place] [address] 07/05/2019 13:52:06 07/05/2019 16:12:52 Type 2 diabetes mellitus without complication 822042960 E11.9 Last A1C February 2019 6.2.Patien t has not been compliant with keeping glucose log, not compliant with her diabetic diet and is physically not able to exercise. I think it will be in the best interest for her to continue medication therapy to keep her A1c at goal. We discussed continuati on of Januvia without metformin, has been on medication the past and has tolerated it well. Report any medication intoleranc e. Hypertensive disorder 38 325622 I10 BP elevated today, uncontroll ed in the last few visits, we'll start atenolol 25 mg daily in addition to lisinopril 40mg, reevaluate blood pressure at next visit. History of cerebrovascular accident 118068866 Z86.73 continue Plavix, ASA DC 2/2 lower GI bleed, Neurology appt pending Seizure disorder 1452237 02 G40.909 No recent sz, continue phenytoin, last phenytoin level within normal Hyperlipidemia 92881479 E78.5 LDL at goal, currently on lipitor Lumbar spondylolisthesis 6172541259 75410 M43.16 s/p L4/[address] Santiago, continues to do well with PT [id number] SATISH NAVARRO MD [address] [address] 07/26/2019 11:53:09 07/29/2019 16:28:08 Edema of lower extremity 927367919 R60.0 On lasix, advised to take an additional 1/2 tab for recurrent edema, will decrease statin, recommende d LE elevation as well, will also send in compressio n hose. Due to recent surgery, places her at an increased risk for DVT, will r/o DVT. She has a f/u appt next week. Pica 06573886 F50.89 Last Hb was 11.0 without microcytos is, suspect iron def anemia at this pt, repeat CBC, check iron levels. Last colonoscop y 02/2019 showed hemorrhoid s and a hyperplast ic polyp, due to repeat in 5 years.. Type 2 mary betes mellitus without complication 488915385 E11.9 Last A1C February 2019 6.2.Ania bush has not been compliant with keeping glucose log, not compliant with her diabetic diet and is physically not able to exercise. I think it will be in the best interest for her to continue medication therapy to keep her A1c at goal ff recent CVA. Pt does not seem to be adjusting to januvia, Will restart janumet at a lower dose per pt preference . Report any medication intoleranc e. Hyperlipidemia 63400458 E78.5 previously on pravastati n, advised need for change to high intensity minimize stroke risk factors, will decrease lipitor to 40mg as edema is a known ADR of lipitor [id number] ANDREZ ANGLIN PA-C NEUROSURG [facility] [address] [place] [address] 08/21/2019 09:12:06 08/21/2019 12:08:24 Lumbar spondylosis 332317521 M47.896 Mrs. Wu is a pleasant 68-year-ol d -Am er[place] female here today for her second scheduled postoperat samantha visit. She is status post an L4 to 5 posterior lateral interbody fusion with Dr. Santiago on 05/14/19 for spondyloli sthesis and bilateral lower extremity lumbar radiculopa thy. She is pleased with her results from surgery. She did slip and fall in the shower 2 or 3 days ago. She is concerned she did something to her hardware. She denies any pain. Will order one last set of AP and lateral lumbar x-rays. We will call her with the results. She knows to call if she doesn't hear from us. I did print out her previous x-rays from May and gave her a copy to keep for her records. There are no further specific lifting restrictio ns from our office and she can use her brace when necessary. All of her questions were answered to her satisfacti on and she is happy with the plan. [id number] SATISH NAVARRO MD [address] [address] 08/21/2019 13:28:54 08/21/2019 15:29:42 Edema of lower extremity 298037613 R60.0 On lasix, advised to take increase 2 tabs daily for recurrent edema, recommende d LE elevation as well, will also send in compressio n hose. Lymphadenopathy 23362800 R59.0 LN in the left groin 34mm, f/u with US in 6 weeks [id number] MAR OSORIO MD NEUROLOGY [facility] CLOS[facility] [address] [place] [address] 09/18/2019 09:03:54 09/18/2019 09:58:58 Lumbar radiculopathy 128862628 M54.16 Ischemic stroke 91081300 2 I63.9 [id number] BECKI SHAH MD NEUROSURG [facility] [address] [place] [address] 10/04/2019 08:58:58 10/11/2019 13:01:08 History of lumbar fusion 2007171145 9106 Z98.1 -MRI was reviewed with the patient. She has postoperat samantha expected changes. Do not see any ongoing severe spinal stenosis at adjacent levels. The foramen stenosis on the left is moderate. Potentiall y, the patient is aggravated the L4 nerve root this could be the cause of her pain at this time. It appears to be nonsurgica l. She has an appointmen t with pain management on October 14. Encouraged her to continue conservati ve measures. Medrol Dosepak. Referral to home health to provide therapy. Evaluation and treatment by pain management as indicated. CT scan to assess the arthrodesi s. Follow-up 3 months. Contact us earlier if her symptoms escalate. Lumbar radiculopathy 128 784945 M54.16 [id number] MARLENA THAYER MD PAIN MEDICINE CLOSED [address] [place] [address] 10/28/2019 13:20:47 10/28/2019 15:03:09 Lumbar radiculopathy 780578154 M54.16 [id number] SATISH NAVARRO MD [address] [address] 01/13/2020 12:43:50 01/13/2020 16:48:20 Hypertensive disorder 83211692 I10 well controlled on current regimen Hyperlipidemia 97356866 E78.5 continue statins Iron defic iency anemia 88212096 D50.9 check levels, instructed to restart supplement s, get OTC Type 2 mary betes mellitus without complication 679903728 E11.9 Last A1C February 2019 6.2. continue current meds, plan for foot exam next OV Diabetic p eripheral neuropathy 110795624 E11.40 continue gabapentin Mass of mark int of right elbow 5900601710 60433 M25.821 cystic like structure, f/u US results, orders pending results Pain of ri ght elbow joint 2092405571 6868705 M25.521 Mass of hand 635062404 R 22.30 feels like a superficia l clot, but not tender, 2/2 frequent IV site, check US, recommende d compressio n Long-term drug therapy 327630271 Z79.899 (x ) This patient has shown no inappropri ate drug seeking behavior or evidence of diversion. The medication is or continues to be in best interest of patient centered care. ( x ) Schedule II, III, IV, or V medication s have been prescribed for symptom/di sease control. The risks and benefits of the medication were discussed. ( ) A narcotic agreement was obtained today. ( x ) An updated narcotic agreement is in this EHR. ( ) rapid-UDS obtained today. ( ) rapid-UDS ordered today. ( )appropria te urine drug screen in chart. ( x) I have personally reviewed this patients current Tyler report: Appears appropriat e. ( ) Tyler requested [id number] SATISH NAVARRO MD [address] [address] 04/21/2020 11:17:15 04/21/2020 16:53:46 Diabetic peripheral neuropathy 003303403 E11.40 discontinu e gabapentin as it will no longer be covered under insurance, was not very helpful to her either,Lyr ica is on the formulary, will start Lyrica, precaution s provided, eval response to meds at next OV Inguinal lymphadenopathy 550622063 R59.0 due for repeat ultrasound Type 2 mary betes mellitus without complication 245974346 E11.9 Last A1C February 2019 6.2. continue current meds, plan for foot exam next OV Hypertensive disorder 38 388086 I10 well controlled on current regimen Hyperlipidemia 72314723 E78.5 continue statins Iron defic iency anemia 91646675 D50.9 on OTC supplement s,check levels Long-term drug therapy 508317730 Z79.899 (x ) This patient has shown no inappropri ate drug seeking behavior or evidence of diversion. The medication is or continues to be in best interest of patient centered care. ( x ) Schedule II, III, IV, or V medication s have been prescribed for symptom/di sease control. The risks and benefits of the medication were discussed. ( ) A narcotic agreement was obtained today. ( x ) An updated narcotic agreement is in this EHR. ( ) rapid-UDS obtained today. ( ) rapid-UDS ordered today. ( )appropria te urine drug screen in chart. ( x) I have personally reviewed this patients current Tyler report: Appears appropriat e. ( ) Tyler requested Seizure disorder 0635792 02 G40.909 No recent sz, continue phenytoin, last phenytoin level within normal, check levels at next OV [id number] SATISH NAVARRO MD [address] [address] 08/12/2020 15:13:30 08/19/2020 12:26:02 Diabetic peripheral neuropathy 408540888 E11.40 gabapentin was initially discontinu ed because insurance will no longer cover however she is unable to tolerate Lyrica, increased her dizziness and drowsiness , will attempt to resend gabapentin again, had tolerated it well in the past. May need to preauthori ze it. TYLER is appropriat e Inguinal pain 039038569 R10.2 Pain in pelvis 84327064 R10.2 Inguinal lymphadenopathy 288019710 R59.0 Last US showed Bilateral benign-rj earing lymph nodes arenoted again. The largest on the right measures 2.8 x 2.2 x 0.8 cm. Thelargest on the left measures 3.1 x 1.8 x 0.7 cm. They are stable insize and appearance . In my opinion, because of their stable,def initely benign appearance and they do not be followed up in a more. Pain of hip region 24409 [address], unclear this is related to her lymphadeno slava or her back/hip pain, advised that she will need to follow up with neurosurge ry for epidural injections which have been helpful in the past. Continue [place]. Instructed to RTC for worsening symptoms. Lumbar radiculopathy 128 751479 M54.16 Iron defic iency anemia 63341381 D50.9 continue supplement s [id number] SATISH NAVARRO MD [address] [address] 01/12/2021 09:26:50 01/14/2021 09:06:29 Orthostatic hypotension 10414386 I95.1 Due to dehydratio n, she is currently on diuretics and not meeting her goals for fluid intake, encourage increase hydration, compressio n hose use. Diabetic p eripheral neuropathy 689730470 E11.40 Continue gabapentin , Tyler is appropriat e Edema of l ower extremity 737842159 R60.0 On lasix, advised to take increase 2 tabs daily for recurrent edema, recommende d LE elevation as well, compressio n hose. Weight loss will be beneficial . Type 2 mary betes mellitus without complication 124575593 E11.9 Last A1C 6.3. continue current meds, plan for foot exam next OV Dizziness 028134042 R42 Due to orthostati c hypotensio n, counseled fall precaution s Iron defic iency anemia 36821982 D50.9 continue supplement s [id number] KATHARINE MURRAY MD [address] [address] 01/29/2021 14:47:00 02/01/2021 08:17:52 Cellulitis of lower limb 494565877 L03.119 counseled to follow up if no improvemen t. Furuncle 263795478 L02.9 2 Hypertensive disorder 38 252447 I10 stable Hyperlipidemia 12149468 E78.5 last 2019 stable Type 2 mary betes mellitus without complication 667046973 E11.9 Patient is taking Janumet 50-500mg BID. Last A1c controlled at 6.4. F: checks feet daily, DM foot exam UTDU: urine microalbum in UTD, slightly elevatedN: follows DM dietP: PPSV23 given 2011L: denies low blood sugarE: gets annual eye examsA: not taking ASA 81mgS: taking statinE: gets some exercise Seizure disorder 4946242 02 G40.909 stable [id number] KATHARINE MURRAY MD [address] [address] 02/23/2021 12:47:20 02/23/2021 13:47:07 Irritable bowel syndrome with diarrhea 046019098 K58.0 will trial dicyclomin ef/u GI Edema of r ight lower limb 628274823 R60.0 in setting of chronic venous stasistaki ng lasix and wears compressio n hoserecent ly treated for cellulitis worsening pain and swelling Skin lesion 41038520 L98 .9 under left breastlast mammogram 2020 wnl [id number] SATISH NAVARRO MD [address] [address] 07/09/2021 13:48:23 07/16/2021 15:52:19 Edema of lower extremity 931145758 R60.0 On lasix, advised to take increase 2 tabs daily for recurrent edema, recommende d LE elevation as well, Continue compressio n hose. Weight loss will be beneficial .Also check echo rule out any underlying cardiovasc ular etiology. Type 2 mary betes mellitus without complication 178727981 E11.9 Last A1C 6.4. continue current meds,foot exam Completed today, will also follow-up with ophthalmol nadiya for eye exam Iron defic iency anemia 75667807 D50.9 continue supplement s Diabetic p eripheral neuropathy 356859861 E11.40 Lumbar radiculopa thy also contribute s to her Neuropathy . To follow-up with specialist . Diplopia 84754977 H53.2 Hypertensive disorder 38 334276 I10 well controlled on current regimen Hyperlipidemia 37646399 E78.5 continue statins Seizure disorder 6443838 02 G40.909 No recent sz, continue phenytoin, last phenytoin level within normal, check levels at next OV History of cerebrovascular accident 721370512 Z86.73 continue Plavix, ASA DC 2/2 lower GI bleed [id number] JORDON FLORES PA-C SAME DAY [address] [address] 01/21/2022 15:30:07 01/25/2022 08:58:32 Pain in left foot 4529213482 43175 M79.672 Patient with pain in dorsum of left foot upon ambulation Discussed most likely a strain. My read of xray shows no obvious fracture, pending radiologis t read. Recommende d conservati ve management . Tylonel for pain, elevation, ice intermitte ntly, walking shoe x 2 weeks. If failure of conservati ve treatment, refer to ortho. RTC precaution s discussed. [id number] SATISH NAVARRO MD [address] [address] 01/25/2022 15:02:24 01/25/2022 16:23:47 Pain in left foot 1087910964 26062 M79.672 Review of x-ray showed Generative changes of the foot, check for gout, will check uric acid Levels.Rec ommended short course of glucocorti coids, topical analgesics , Epsom salt soaks.Podi atry eval if no improvemen t. Type 2 mary betes mellitus 37696613 E11.40 Last A1C 6.4. At goal, Due for repeat labs today, will adjust medication s as indicated. Diabetic p eripheral neuropathy 396954428 E11.40 Lumbar radiculopa thy also contribute s to her Neuropathy . Stable on gabapentin . Edema of l ower extremity 696231738 R60.0 Continue Lasix, compressio n hose and elevation. Iron defic iency anemia 11465090 D50.9 continue supplement s Hypertensive disorder 38 025655 I10 Elevated today, better control,co ntinue current regimen Hyperlipidemia 32889656 E78.5 continue statins Seizure disorder 9806306 02 G40.909 No recent sz, continue phenytoin, last phenytoin level within normal History of cerebrovascular accident 081009130 Z86.73 continue Plavix, ASA DC 2/2 lower GI bleed [id number] SATISH NAVARRO MD [address] [address] 05/24/2022 10:10:39 05/26/2022 09:13:08 Exacerbation of backache 737975134 M54.9 Lumbar radiculopathy 128 621274 M54.16 Patient with history of L4/[address] Santiago in 2019.Patie nt is in moderate pain, we discussed her most recent MRI from 2019. Lumbar x-ray showed L4-L5 spinal fusion is noted. Surgical hardware is satisfacto rily placed. No abnormal hardware movement is seen. Degenerati ve changes are seen at other levels. No instabilit y. Advised to continue gabapentin , sent in short course of [place]. Tyler is appropriat e. She is agreeable to seeing [facility] pain management . Diabetic p eripheral neuropathy 258459073 E11.40 [id number] SATISH NAVARRO MD [address] [place] [address] 06/07/2022 10:21:00 06/13/2022 14:28:47 Lumbar radiculopathy 189007162 M54.16 We discussed options for pain management , Did not find LESI helpful in the past,advis ed seeing pain management for a different option, does not really want to be dependent on opiates.Rodríguez dewitt will consider pain management again, does not need any additional [place], will increase gabapentin to 300 mg 3 times daily.. Diabetic p eripheral neuropathy 582119432 E11.40 cont gabapentin Long-term drug therapy 424934980 Z79.899 (x ) This patient has shown no inappropri ate drug seeking behavior or evidence of diversion. The medication is or continues to be in best interest of patient centered care. ( x ) Schedule II, III, IV, or V medication s have been prescribed for symptom/di sease control. The risks and benefits of the medication were discussed. ( ) A narcotic agreement was obtained today. ( x ) An updated narcotic agreement is in this EHR. (x ) rapid-UDS obtained today. ( ) rapid-UDS ordered today. ( )appropria te urine drug screen in chart. ( x) I have personally reviewed this patients current Tyler report: Appears appropriat e. ( ) Tyler requested Type 2 mary betes mellitus without complication 938890814 E11.9 A1C 6.1. At goal. continue current meds.Cauti oned about steroid induced hyperglyce gayle Type 2 mary betes mellitus 51317363 E11.40 Last A1C 6.4. At goal, Due for repeat labs today, will adjust medication s as indicated. Edema of l ower extremity 733172103 R60.0 Continue Lasix, compressio n hose and elevation. Iron defic iency anemia 04002075 D50.9 continue supplement s Hypertensive disorder 38 836869 I10 Elevated today d/t pain, usually better control,co ntinue current regimen Hyperlipidemia 32278677 E78.5 continue statins Seizure disorder 1726231 02 G40.909 No recent sz, continue phenytoin, last phenytoin level within normal History of cerebrovascular accident 551357658 Z86.73 continue Plavix, ASA DC 2/2 lower GI bleed [id number] SATISH NAVARRO MD [address] [place] [address] 12/01/2022 15:00:32 12/01/2022 16:42:58 Lumbar radiculopathy 727564117 M54.16 Stable, physical therapy has been helpful.Do es not feel like she needs to see pain management at this time. Did not get any relief from previous LESI. Diabetic p eripheral neuropathy 024715642 E11.40 cont gabapentin Long-term drug therapy 726578985 Z79.899 (x ) This patient has shown no inappropri ate drug seeking behavior or evidence of diversion. The medication is or continues to be in best interest of patient centered care. ( x ) Schedule II, III, IV, or V medication s have been prescribed for symptom/di sease control. The risks and benefits of the medication were discussed. ( ) A narcotic agreement was obtained today. ( x ) An updated narcotic agreement is in this EHR. ( ) rapid-UDS obtained today. ( ) rapid-UDS ordered today. ( )appropria te urine drug screen in chart. ( x) I have personally reviewed this patients current Tyler report: Appears appropriat e. ( ) Tyler requested Type 2 mary betes mellitus 15831803 E11.40 A1C 5.9. At goal, we discussed cutting her Janumet to half tablet twice daily.Leo pentin helps. Edema of l ower extremity 760047987 R60.0 Continue Lasix, compressio n hose and elevation. Iron defic iency anemia 88665308 D50.9 continue supplement s, Recheck labs today. Hyperlipidemia 70018393 E78.5 continue statins Seizure disorder 6200683 02 G40.909 No recent sz, continue phenytoin, last phenytoin level within normal History of cerebrovascular accident 421972132 Z86.73 continue Plavix, ASA DC 2/2 lower GI bleed Essential hypertension 56118839 I10 Elevated today d/t pain, usually better control,co ntinue current regimen Neck pain 90139564 M54.2 Atypical chest pain 1025 76179 R07.89 Morbid obesity 183229402 E66.01 E11.9 Continue lifestyle changes, found physical therapist weight loss program very helpful. Would like to get back in there. Body mass index 40+ - severely obese 495079503 Z68.41 [id number] SATISH NAVARRO MD [address] [address] 04/07/2023 14:51:52 04/18/2023 15:37:30 Type 2 diabetes mellitus with peripheral angiopathy 588070979 E11.51 stable, on plavix, statins Type 2 mary betes mellitus 72195867 E11.42 A1C 6.6. At goal. continue current meds. Essential hypertension 31710471 I10 BP controlled , continue current regimen Hyperlipidemia 42753075 E78.5 continue statins History of cerebrovascular accident 198405748 Z86.73 continue Plavix, ASA DC 2/2 lower GI bleed Edema of l ower extremity 957712986 R60.0 Continue Lasix, compressio n hose and elevation. Seizure 87835941 R56.9 No recent episodes. Severe dry skin 11911043 2 L85.3 Recommende d Eucerin specifical ly for dry skin. [id number] KATHARINE MURRAY MD [address] [address] 10/11/2023 13:31:10 10/11/2023 14:51:02 Type 2 diabetes mellitus with peripheral angiopathy 370714547 E11.51 Patient is taking Janumet 25-250 mg twice daily. A1c is 7.6. On clopidogre l for vascular disease. F: recommend check feet daily, DM foot exam UTD 10/20U: urine microalbum in UTD 06/19N: recommend DM diet - reports eats donuts and a lot of sugarP: PCV20 declinedL: denies low blood sugarE: recommend annual eye examsA: ACEI/ARB for renal protection : Freddy: statin: YesE: recommend daily exerciseFI B-4: 1.25 (2021) Stop Janumet and add SGLT-2 and GLP-1. Continue metformin. Follow-up 3 months. I am treating the patient under a comprehens samantha plan of care for her diabetes. Patient would benefit from diabetic shoes to treat and prevent further foot problems due to diabetes. Essential hypertension [id number] I10 Takes lisinopril 40 mg, atenolol 25 mg, and LasixPress ure controlled in officeCont inue medication Peripheral neuropathy due to type 2 diabetes mellitus [id number] 107 E11.42 Takes gabapentin for neuropathy Treat diabetes per abovestabl e, continue medication Morbid obesity 843825943 E66.01 Counseled on importance of weight loss for overall health. Discussed goal BMI < 30. Recommend 30-60 minutes of cardiovasc ular exercise 5 days weekly. Also recommend lower carbohydra te diet, smaller portion sizes, eliminatin g sugary drinks such as sweet tea, juice, and soda. I recommend My Fitness Pal for food tracking. Body mass index 40+ - severely obese [id number] Z68.43 will start GLP-1 to aid with weight loss Uncontroll ed type 2 diabetes mellitus 995253006 E11.65 adjust medication per above Hyperlipidemia 01884169 E78.5 takes atorvastat inmonitor LDLcontinu e medication Edema of l ower extremity 422690820 R60.0 takes lasix BID PRNuses compressio n socksstabl e - monitor renal functionco ntinue medication Seizure disorder 7641822 02 G40.909 takes phenytekst ablecontin ue medication Cerebrovas cular disease 78509239 I67.9 h/o CVAtakes statin and plavixcont inue medication Medication monitoring 39 3810740 Z51.81 (x) This patient has shown no inappropri ate drug seeking behavior or evidence of diversion. The medication is or continues to be in best interest of patient centered care. (x) Schedule II, III, IV, or V medication s have been prescribed for symptom/di sease control. The risks and benefits of the medication were discussed. ( ) A narcotic agreement was obtained today. (x) An updated narcotic agreement is in this EHR. ( ) rapid-UDS obtained today. ( ) rapid-UDS ordered today. (x) appropriat e urine drug screen in chart. (x) I have personally reviewed this patients current Tyler report: Appears appropriat e. ( ) Tyler requested Foot callus [id number] L8 4 right foot, needs podiatry referral and DM shoes [id number] KATHARINE MURRAY MD [address] [place] [phone] 05/20/2024 15:55:11 05/20/2024 16:48:50 Peripheral neuropathy due to type 2 diabetes mellitus [id number] 107 E11.42 Takes gabapentin for neuropathy Treat diabetes per abovestabl e, continue medication Type 2 mary betes mellitus with peripheral angiopathy 283764187 E11.51 Patient is taking 0.5 tab Janumet 25-250 mg twice daily. A1c is 8.4, up from 7.6. On clopidogre l for vascular disease. F: recommend check feet daily, DM foot exam UTD 10/20U: urine microalbum in UTD 24N: recommend DM diet - reports eats donuts and a lot of sugarP: PCV20 declinedL: denies low blood sugarE: recommend annual eye examsA: ACEI/ARB for renal protection : Freddy: statin: YesE: recommend daily exerciseFI B-4: 1.25 (2021) Tried to add SGLT-2 and GLP-1, but did not want to take metformin, so she didn't make any changes and decreased Janumet to 1 tab daily. Will increase Janumet to 1 tablet BID and add Jardiance. Follow-up 3 months. I am treating the patient under a comprehens samantha plan of care for her diabetes. Patient would benefit from diabetic shoes to treat and prevent further foot problems due to diabetes. Seizure disorder 1400774 02 G40.909 takes phenytekst ablecontin ue medication Essential hypertension 93790013 I10 Takes lisinopril 40 mg, atenolol 25 mg, and LasixPress ure controlled in officeCont inue medication Cerebrovas cular disease 25851697 I67.9 h/o CVAtakes statin and plavixcont inue medication Edema of l ower extremity 987507796 R60.0 takes lasix BID PRNuses compressio n socks and foot elevations table - monitor renal functionco ntinue medication Hyperlipidemia 06298457 E78.5 takes atorvastat inmonitor LDLcontinu e medication not fasting Morbid obesity 171533807 E66.01 BMI >40 Counseled on importance of weight loss for overall health. Discussed goal BMI < 30. Recommend 30-60 minutes of cardiovasc ular exercise 5 days weekly. Also recommend lower carbohydra te diet, smaller portion sizes, eliminatin g sugary drinks such as sweet tea, juice, and soda. I recommend My Fitness Pal for food tracking. Hypokalemia 15438281 E87 .6 takes K supplement monitor level Medication monitoring 39 4633703 Z51.81 (x) This patient has shown no inappropri ate drug seeking behavior or evidence of diversion. The medication is or continues to be in best interest of patient centered care. (x) Schedule II, III, IV, or V medication s have been prescribed for symptom/di sease control. The risks and benefits of the medication were discussed. ( ) A narcotic agreement was obtained today. (x) An updated narcotic agreement is in this EHR. ( ) rapid-UDS obtained today. ( ) rapid-UDS ordered today. (x) appropriat e urine drug screen in chart. (x) I have personally reviewed this patients current Tyler report: Appears appropriat e. ( ) Tyler requested Uncontroll ed type 2 diabetes mellitus [id number] E11.65 adjust medication per above Foot callus 921419400 L8 4 right foot, needs podiatry referral and DM shoes Health Concerns Section Related Observation LastModified by Organization Detai ls LastModified Time None Recorded Concern Status LastModified by Organization Details LastModified Time None Recorded Advance Directives Directive None Recorded Payers Insurance Date Sequence Insurance Name Policy Number Policy Edmond Covered Member ID Edmond Member ID Guarantor Name 09/16/2024 1 [place]ARE[place]ICARE[place] Gemma Gustafson [id number] Gemma Gustafson 01/30/2019 PAYMENT PLAN Gemma Gustafson Notes Date Note Type Note Provider Name and Address Organization Details Recorded Time 06/07/2022 text/html Pt is a 71 yo fe male presenting for recheck.She reports having the same issues as the last time she was seen, only worse. She reports difficulty having bowel movements, has been having severe constipation. She says pain is worsening, moving down her legs now. She says the steroid shot she was given last time did not improve her symptoms at all. She is under care of pain management. She has had to depend on her daughter and son-in-law more to help her carry out daily activities. Pt has been referred to pain management before. She was supposed to get a second opinion with a different provider, and she did not keep appointment. She did not feel like they would be helpful but is now willing to consider. She will try physical therapy. 05/24/2022t is a 71 yo female presenting for progressively worsening back pain. Pt says pain is working its way down in to her calves.. She has nerve pain in her toes, says they are causing considerable amount of pain. She reports weakness in the lower extremity, was unable to walk into the clinic without assistance, has been using her cane. She denies any bowel or bladder incontinence or saddle anesthesia. She has fallen in the past. But no recent trauma.Pain has been worse lately, affecting her ability to perform her ADLs and in turn her mood. She has been very upset as she has been in pain more lately. Her daughter has to assist with a lot of things. Her mobility is decreased as a result. Gabapentin is not helping as much.Experiences swelling in one leg more than the other. Says she has been compliant with her diuretics.Recently cut out all sugar from her diet, she does not check sugar levels at home. Pt has done physical therapy and home health over the years after back surgery.Pt reports going to Pain management in the past for shots.She did not care for the treatment that she received-She will be interested in seeing pain management. SATISH NAVARRO MD [facility] [place], [phone], [facility] 06/17/2022 11:07:45 12/01/2022 text/html 72 year old eve alegre presenting for a follow up and medication refill She reports she has been doing PT and notes improvement in her chronic pain symptoms in her neck and back. She was doing a 90 day PT wt loss program that has since ended. She reports she has lost apprx 10lbs. She notes pain in her legs and dizziness. She wears a compression sock for her leg symptoms Denies weakness in hands. Her BP has been elevated, today it was 142/80.She has had to depend on her daughter and son-in-law more to help her carry out daily activities.Reports chest discomfort, not radiating, feels different.Also has neck pain. Chronic conditions are stable. DM: Last A1C was 6.1. She has been compliant with Janumet 2x daily. She does not check her blood sugars at home. She is currently on a statin and aspirin.BP - lisinopril On neurontin for diabetic neuropathy. HTN: controlled on current medications. Chronic LE Edema: on lasix. Seizure: stable on phenytoin. No recent seizure activity. Hyperlipidemia: Currently on statin. LDL less than 100. She denies any current complaints. History of CVA:on Statin & aspirin, plavix.LEANNA: prev on iron.Chronic back pain:Affects her mobility, She uses her cane, she did have back surgery and then had an epidural shot without much relief. Back pain is stable. No recent falls. SATISH NAVARRO MD [address] [place] [address], [phone], [facility] 12/21/2022 20:33:50 04/07/2023 text/html 72 year old femlinda alegre presenting for a recheck and medication refill C/o dry skin. Has tried eucerin, avila butter and Vaseline without any significant effect. She reports occasional itching. She is interested in taking vitamin D with calcium supplement for osteoporosis.Her latest bone density test was normal. She has had to depend on her daughter and son-in-law more to help her carry out daily activities.She has gained around 8lbs. She states she hasn't been eating well since the holidays. Chronic conditions are stable. DM: Last A1C was 5.9. She has been compliant with Janumet 2x daily. She does not check her blood sugars at home. She is currently on a statin and aspirin.BP - lisinopril On neurontin for diabetic neuropathy. HTN: controlled on current medications. Chronic LE Edema: on lasix. Seizure: stable on phenytoin. No recent seizure activity. Hyperlipidemia: Currently on statin. LDL less than 100. She denies any current complaints. History of CVA:on Statin & aspirin, plavix.LEANNA: prev on iron.Chronic back pain:Affects her mobility, She uses her cane, she did have back surgery and then had an epidural shot without much relief. Back pain is stable. No recent falls. SATISH NAVARRO MD [address] [place] [address], [phone], [facility] 04/16/2023 11:01:25 10/11/2023 text/html 72-year-old fema le with history of type 2 diabetes, cerebrovascular disease, hypertension, seizure disorder, and lower extremity edema presents to establish care for follow-up on chronic conditions. #HTN: Patient takes atenolol 25 mg, lisinopril 40 mg, and Lasix 40 mg twice daily. Blood pressure controlled in office. #DM: Patient takes Janumet 25 250 twice daily. She takes gabapentin for neuropathy. #HLD: Patient takes atorvastatin 40 mg. LDL well-controlled. #CVD: Patient takes Plavix 75 mg. #Seizure disorder: Patient takes Phenytek 400 mg daily. KATHARINE MURRAY MD [address] [place] [address], [phone], [facility] 10/11/2023 15:04:58 05/20/2024 text/html 73-year-old fema le with history of type 2 diabetes, cerebrovascular disease, hypertension, seizure disorder, and lower extremity edema presents for follow-up on chronic conditions. #HTN: Patient takes atenolol 25 mg, lisinopril 40 mg, and Lasix 40 mg twice daily. Blood pressure controlled in office. #DM: Patient takes Janumet 25 250 twice daily. She takes gabapentin for neuropathy. She has a callous on the bottom on her right foot. #HLD: Patient takes atorvastatin 40 mg. LDL well-controlled. #CVD: Patient takes Plavix 75 mg. #Seizure disorder: Patient takes Phenytek 400 mg daily. KATHARINE MURRAY MD [address] [place] [address], [phone], [facility] 05/20/2024 16:46:38 OBGyn Episode No OBEpisode recorded.
[2024-09-18 11:19] LABS: Cholesterol 139 mg/dl (140-200); HDL Cholesterol 54 mg/dl (40-60); Triglycerides 124 mg/dl (30-150)
== END 2024-09-18 23:59 | disposition home or self-care (01) ==
LOC: LAB 08:36
PROVIDERS: PCP Family Medicine; Visit Provider Family Medicine
DX: I10 Essential (primary) hypertension (principal); Z13.1 Encounter for screening for diabetes mellitus
CPT/HCPCS: 36415; 80061